=== PATIENT | female | born 1940 | race Caucasian/White ===

== ENCOUNTER → 2017-08-16 10:10 | Outpatient (CLI) | payer MEDICARE, SELFPAY ==
--- NOTE | 2017-08-16 10:14 | CI_ITS ---
Cerebrovascular Exam Indications: 433.10 Occlusion/stenosis of carotid artery without cerebral infarction. IMPRESSIONS 1. The bilateral vertebral arteries are patent with normal antegrade flow. 2. Study suggests 20-49% stenosis involving the right internal carotid artery and left internal carotid artery. 3. Tortuous carotid arteries seen on the left History: Coronary artery disease. Risk factors: Hypertension. Hyperlipidemia. ICD Coronary artery disease. Carotid duplex study. Complete study and Doppler flow study including spectral analysis, color and mera scale imaging. Height: Height: 142.2cm. Height: 56in. Weight: Weight: 58.1kg. Weight: 127.7lb. Body mass index: BMI: 28.7kg/m^2. Body surface area: BSA: 1.54m^2. Location: Vascular laboratory. Patient status: Outpatient. Tables: Arterial flow: + +--------+--------+ Location V sys V ed + +--------+--------+ Right CCA - proximal 89.6cm/s 17.3cm/s + +--------+--------+ Right CCA - distal 75.4cm/s 18.1cm/s + +--------+--------+ Right ECA 84.9cm/s -------- + +--------+--------+ Right ICA - proximal 68.4cm/s 9.4cm/s + +--------+--------+ Right ICA - mid 79.4cm/s 12.6cm/s + +--------+--------+ Right ICA - distal 90.4cm/s 14.9cm/s + +--------+--------+ Right vertebral 45.6cm/s -------- + +--------+--------+ Left CCA - proximal 80.9cm/s 14.1cm/s + +--------+--------+ Left CCA - distal 63.6cm/s 15.7cm/s + +--------+--------+ Left ECA 102cm/s -------- + +--------+--------+ Left ICA - proximal 77cm/s 22cm/s + +--------+--------+ Left ICA - mid 172cm/s 41.6cm/s + +--------+--------+ Left ICA - distal 164cm/s 30.4cm/s + +--------+--------+ Left vertebral 58.9cm/s -------- + +--------+--------+ Velocity ratios: + + + + + + Right, V sys Right, V ed Left, V sys Left, V ed + + + + + + Max ICA/dist CCA 1.2 0.82 2.7 2.65 + + + + + + (Report amended ) Electronically signed by: Agustín Ludwig [id number]
== END ==
PROVIDERS: Family Provider Nurse Practitioner Family; PCP Nurse Practitioner Family; Visit Provider Internal Medicine
DX: I65.23 Occlusion and stenosis of bilateral carotid arteries (principal)
CPT/HCPCS: 93880

== ENCOUNTER → 2018-11-16 12:06 | Outpatient (CLI) | payer MEDICARE, SELFPAY ==
--- NOTE | 2018-11-16 12:09 | CI_ITS ---
Cerebrovascular Exam Indications: 433.10 Occlusion/stenosis of carotid artery without cerebral infarction. IMPRESSIONS 1. The bilateral vertebral arteries are patent with normal antegrade flow. 2. Study suggests 20-49% stenosis involving the right internal carotid artery and the left internal carotid artery. No change from the study of 16-Aug-2017. 3. Tortuous carotid arteries seen bilaterally. Carotid duplex study. Complete study and Doppler flow study including spectral analysis, color and mera scale imaging. Patient status: Outpatient. Tables: Arterial flow: + +--------+--------+ Location V sys V ed + +--------+--------+ Right CCA - proximal 76.2cm/s 12.6cm/s + +--------+--------+ Right CCA - distal 46.4cm/s 10.2cm/s + +--------+--------+ Right ECA 69.9cm/s -------- + +--------+--------+ Right ICA - proximal 47.1cm/s 13.4cm/s + +--------+--------+ Right ICA - mid 88cm/s 17.3cm/s + +--------+--------+ Right ICA - distal 53.4cm/s 11.8cm/s + +--------+--------+ Right vertebral 53.4cm/s -------- + +--------+--------+ Left CCA - proximal 51.1cm/s 14.9cm/s + +--------+--------+ Left CCA - distal 47.1cm/s 11.8cm/s + +--------+--------+ Left ECA 96.6cm/s -------- + +--------+--------+ Left ICA - proximal 63.6cm/s 21.2cm/s + +--------+--------+ Left ICA - mid 129cm/s 23.8cm/s + +--------+--------+ Left ICA - distal 108cm/s 25.1cm/s + +--------+--------+ Left vertebral 40.1cm/s -------- + +--------+--------+ Velocity ratios: + + + + + + Right, V sys Right, V ed Left, V sys Left, V ed + + + + + + Max ICA/dist CCA 1.9 1.7 2.74 2.13 + + + + + + (Report amended ) Electronically signed by: Agustín Ludwig [id number]
== END ==
PROVIDERS: PCP Nurse Practitioner Family; Visit Provider Nurse Practitioner Family
DX: I65.23 Occlusion and stenosis of bilateral carotid arteries (principal)
CPT/HCPCS: 93880

== ENCOUNTER 2019-02-18 20:36 | Inpatient (IN) ==
[2019-02-18 22:04] LABS: Basophils % 0.3 % (0.1-2.0); Eosinophils # 0.2 K/mm3 (0.0-0.4); Eosinophils % 1.4 % (0.1-12.0); Hematocrit 39.9 % (37.0-47.0); Hemoglobin 12.7 g/dL (12.2-16.2); Lymphocytes # 1.6 K/mm3 (0.7-4.5); Lymphocytes % 15.1 % (10-50); Mean Corpuscular HGB Conc 31.8 g/dL (31.8-35.4); Mean Corpuscular Volume 97.4 fl (81-99); Mean Platelet Volume 9.3 fl (7.4-10.4); Monocytes # 0.5 K/mm3 (0.1-1.0); Monocytes % 4.8 % (1.7-9.3); Neutrophils # 8.2 K/mm3 (1.8-7.8); Neutrophils % 78.3 % (37.0-80.0); Platelet Count 149 K/mm3 (142-424); Red Blood Count 4.09 M/mm3 (4.20-5.40); Red Cell Distribution Width 13.1 % (11.5-17.5); White Blood Count 10.4 K/mm3 (4.8-10.8)
[2019-02-18 22:31] LABS: Anion Gap 17.9 mEq/L (5-15); Calcium 8.7 mg/dL (8.5-10.1)
--- NOTE | 2019-02-18 22:31 | Emergency Department Note ---
ED Disposition Clinical Impression: Closed left hip fracture Qualifiers: Encounter type: initial encounter Qualified Code(s): S72.002A - Fracture of unspecified part of neck of left femur, initial encounter for closed fracture Disposition: Admitted As Inpatient Condition on Discharge: Fair - Critical Care Critical Care Time: No Attestation: On 02/18/19, the high probability of a clinically significant, sudden or life threatening deterioration of the following system(s) required my full and direct attention, intervention and personal management. The time I documented below is in addition to time spent performing reported procedures but includes the following listed in this critical care notation. Medical Decision Making - David Inquiry Pt receiving controlled substance: No Vital Signs: 02/18/19 20:41 Temperature 98.0 F Temperature Source Oral Pulse Rate [Right] 60 Respiratory Rate 14 Blood Pressure [Right Arm] 117/56 L Blood Pressure Mean [Right Arm] 76 Blood Pressure Source [Right Arm] Automatic Cuff Blood Pressure Position [Right Arm] Supine 02 Sat by Pulse Oximetry 100 Oxygen Delivery Method Nasal Cannula Oxygen Flow Rate (LPM) 2 - Lab Data Lab Results 02/18/19 21:50: WBC 10.4, RBC 4.09 L, Hgb 12.7, Hct 39.9, MCV 97.4, MCH 31.0, MCHC 31.8, RDW 13.1, Plt Count 149, MPV 9.3, Neut % (Auto) 78.3, Lymph % (Auto) 15.1, [place] % (Auto) 4.8, Eos % (Auto) 1.4, Baso % (Auto) 0.3, Neut # (Auto) 8.2 H, Lymph # (Auto) 1.6, [place] # (Auto) 0.5, Eos # (Auto) 0.2, Baso # (Auto) 0.0 02/18/19 21:50: Sodium 144, Potassium 4.9, Chloride 109 H, Carbon Dioxide 22, Anion Gap 17.9 H, BUN 25 H, Creatinine 1.05 H, Estimated Creat Clear 38, Estimated GFR 50 L, Est GFR ( Amer) 61, Glucose 173 H, Calcium 8.7, Troponin I 0.03 Result diagrams: 02/18/19 21:50 02/18/19 21:50 Orders (Tests/Meds): ORDERS Category Date Time Status XR chest portable Stat Exams 02/18/19 20:52 Taken XR elbow LT min 3V Stat Exams 02/18/19 20:52 Taken XR hip LT 2-3V w/pelvis Stat Exams 02/18/19 20:52 Taken XR knee LT 2V Stat Exams 02/18/19 20:52 Taken XR shoulder LT min 2V Stat Exams 02/18/19 20:52 Taken Urinalysis and Microscopic Stat Lab 02/18/19 22:55 Ordered - Radiology Data #1 Image(s): Chest, Shoulder, Elbow, Hip, Knee Image Reviewed: Yes I reviewed the patient's radiology image Hip: left femoral neck fracture Left shoulder, elbow, and knee: No acute fracture or dislocation Chest x-ray: Pacemaker present. No acute pathology. - ECG Data Tracing #1 EKG interpreted by Julio Olson MD: Rhythm: Electronic atrial pacemaker Rate: 60 [place]: normal Ectopy: none Conduction: Left bundle branch block - Physician Consults Physician Consulted: Adolfo Time: 23:14 Reason -: Admission Comment/Response: Agrees to admit the patient to the hospital. We discussed the patient's clinical information, including history, exam, laboratory and radiology results and ED course. Per hospital procedure, I will write temporary bridge inpatient orders on the patient. Specific orders requested by the admitting physician: Consult orthopedics Additional Consult: Virgil Time: 23:18 Reason -: Orthopedic Eval/Care Comment/Response: N.p.o. after midnight General Adult HPI - General Chief complaint: Fall Stated complaint: fall Time Seen by Provider: 02/18/19 22:31 Mode of Arrival: EMS Limitations: Physical Limitations Description of Symptoms (Recalled from ER Triage Doc. by RN): Pt states she fell in her house chasing a cat, denies LOC, c/o Left shoulder, left elbow, left hip and left knee pain. - History of Present Illness HPI narrative: Brought in by ambulance for left hip injury. She says that that got caught up under her feet causing her to fall. Has left hip pain. Also has some minor pain in her left shoulder, elbow, and knee. Denies head or neck injury. She is not on any blood thinners. Given fentanyl during transport. Comfortable at this time. - Related Data Home Medications Medication Instructions Recorded Confirmed donepezil 5 mg tablet 5 mg PO QHS 08/17/18 02/18/19 aspirin 325 mg tablet 325 mg PO DAILY 11/16/18 02/18/19 Bisoprolol Fumarate [Bisoprolol 10 mg PO QDAY 02/18/19 02/18/19 10mg Tablet] Lisinopril [Lisinopril 2.5mg Tab] 2.5 mg PO BID 02/18/19 02/18/19 Previous Rx's Medication Instructions Recorded nitroglycerin 0.4 mg sublingual 0.4 mg SUBLINGUAL Q5M PRN #30 tab 02/15/19 tablet Allergies Allergy/AdvReac Type Severity Reaction Status Date / Time adhesive tape Allergy Mild BREAKOUT Verified 02/15/19 10:43 Penicillins [PENICILLINS] Allergy Unknown Verified 02/15/19 10:43 rivaroxaban [From Xarelto] Allergy Rash Verified 02/15/19 10:43 [facility] History - Hepatitis A Screen Drug use history?: No High risk sexual behaviors?: No History of sexually transmitted infection?: No Currently employed?: No Childcare worker?: No Do you have indoor plumbing?: Yes Do you have electricity?: Yes Attestation statement:: This patient has been screened for Hepatitis A risk factors. I have reviewed the patient's past medical history: Yes Medical History: Reports:: Congestive Heart Failure, Coronary Artery Disease, Hyperlipidemia, Hypertension, Internal Pacemaker Denies:: Diabetes Mellitus Type 1, Diabetes Mellitus Type 2 Other Medical History: Reports: Hypothyroidism Other Surgeries: Yes: Angioplasty, Hysterectomy-Total, Pacemaker Comment: [facility] 01/09/16. Cholecystectomy - Social History Smoking Status: Former smoker Tobacco Type: cigarettes Alcohol Intake: never Substance Use Type: denies use Occupational Status: retired Family Hx:: Heart Attack ROS Obtained: Yes All systems reviewed & no additional complaints - Constitutional Constitutional: Denies fever(s) - Cardiovascular Cardiovascular: Denies chest pain - Respiratory Respiratory: No dyspnea - Gastrointestinal Gastrointestingal: Denies: abdominal pain, nausea, vomiting - Musculoskeletal Musculoskeletal: Reports as per HPI, Reports joint pain, Denies back pain, Denies neck pain - Neurologic Neurologic: Denies numbness, Denies weakness Physical Exam - General General appearance: alert, in no apparent distress - Head Head exam: atraumatic, normocephalic - Eye Eye exam: Present: normal appearance, EOMI - ENT ENT exam: Present: mucous membranes moist - Neck Neck exam: Present: normal inspection, trachea midline - Chest Chest inspection: Present: normal inspection, symmetric chest wall rise - Respiratory Respiratory exam: Present: normal lung sounds bilaterally. Absent: respiratory distress - Cardiovascular Cardiovascular exam: Present: regular rate, normal rhythm, normal heart sounds - Abdominal Exam Abdominal exam: Present: soft, normal bowel sounds. Absent: distention, tenderness, guarding - Extremities Exam Extremities exam: Present: normal capillary refill - Neurological Exam Neurological exam: Present: alert, oriented X3, CN II-XII intact. Absent: motor sensory deficit - Psychiatric Psychiatric exam: Present: normal affect, normal mood - Skin Skin exam: Present: warm, dry - Other Other exam information: Left lower extremity is shortened and externally rotated. Pain with any attempted logrolling of the extremity. Normal neurovascular status distally. Mild tenderness left shoulder, elbow, and knee without deformity.
[2019-02-19 00:29] LABS: Microscopic, Urine URINE MICROSCOPIC (MICROSCOPIC)
[2019-02-19 01:11] LABS: Appearance,Urine SL CLOUDY (Clear); Bilirubin,Urine Negative (Negative); Blood, Urine 3+ (Negative); Color,Urine YELLOW (Yellow); Glucose,Urine (UA) Negative (Negative); Ketones,Urine TRACE (Negative); Leukocyte Esterase,Urine Negative (Negative); PH,Urine 5.5 (5.0-8.5); Protein,Urine TRACE (Negative); Specific Gravity, Urine >= 1.030 (1.005-1.030); Urobilinogen,Urine 0.2 EU/dl (0.2)
[2019-02-19 01:17] LABS: Amorphous Sediment,Urine 1+ /lpf
--- NOTE | 2019-02-19 10:36 | Consult Report ---
*Admission Date: 02/18/19 *Reason for consult:: Left hip fracture *History of present illness: Patient is an 78-year-old female admitted last night for management of left hip fracture. She is giving history of fall at home yesterday while chasing her cat. She could not get up and walk afterwards and was brought to ER where work- up including x-rays showed a displaced left femoral neck fracture. She denied a ny head trauma, loss of consciousness, confusion, chest pain, shortness of breath. She lives with her and was walking independently prior to the fall. She has history of pacemaker dependence and she had also fallen 2 weeks prior with out incident and was taken to [facility] where no fracture was identified. Her medical history includes congestive Heart Failure, Coronary Artery Disease, Hyperlipidemia, Hypertension and internal Pacemaker. She is on long-term aspirin. No history of diabetes, chronic kidney disease and she is a non-smoker. Patient is very active and was at court [place] in [place] yesterday with no chest pain or shortness of breath. She has history of coronary artery disease with a remote placement of a stent and pacemaker; she follows closely with cardiology and last saw Dr. Pereira's office this past Wednesday. Review of Systems - Review of Systems Review of systems:: pertinent systems reviewed and negative unless documented below - Constitutional Denies anorexia, Denies excessive sweating - Eyes Denies blurry vision - *Cardiovascular Denies chest pain, Denies shortness of breath - *Respiratory Denies cough, Denies shortness of breath - *Gastrointestinal Denies abdominal pain - *Musculoskeletal Reports abnormal walking, Reports joint pain - Integumentary/Breasts Reports lesions, Reports itching, Reports rash - *Neurologic Denies numbness, Denies weakness [facility] History I have reviewed the patient's past medical history: Yes Medical History: Reports:: Congestive Heart Failure, Coronary Artery Disease, Hyperlipidemia, Hypertension, Internal Pacemaker Denies:: Cancer, Diabetes Mellitus Type 1, Diabetes Mellitus Type 2 *Have you ever received a pneumonia vaccine?: Yes *Have you received a flu vaccine this season?: Yes Other Medical History: Reports: Hypothyroidism Other Surgeries: Yes: Angioplasty, Appendectomy, Hysterectomy-Total, Pacemaker - *Social History Educational Level: Completed High School Smoking Status: Former smoker Tobacco Type: cigarettes # Packs/Day (cigarettes): 1 Alcohol Intake: never Substance Use Type: denies use *Occupational Status:: retired Housing: house Household Members: spouse, family *Travel in the last 8 weeks: None Family Hx:: No significant family history Meds Home Medications Medication Instructions Recorded Confirmed Type donepezil 5 mg tablet 5 mg PO HS 08/17/18 02/19/19 History aspirin 325 mg tablet 325 mg PO DAILY 11/16/18 02/18/19 History nitroglycerin 0.4 mg sublingual 0.4 mg SUBLINGUAL Q5M PRN #30 tab 02/15/19 02/18/19 Rx tablet Bisoprolol Fumarate [Bisoprolol 10 mg PO DAILY 02/18/19 02/19/19 History 10mg Tablet] Lisinopril [Lisinopril 2.5mg Tab] 2.5 mg PO BID 02/18/19 02/18/19 History Enoxaparin Sodium [Lovenox 30 mg SQ Q12H 21 Days syringe 02/21/19 Rx 30mg/0.3mL syringe] Hydrocod/Acet 5/325 mg [[place] 1 - 2 tab PO Q4HP PRN #24 tab 02/21/19 Rx 5/325mg tablet] Allergies Allergy/AdvReac Type Severity Reaction Status Date / Time adhesive tape Allergy Mild BREAKOUT Verified 02/15/19 10:43 Penicillins [PENICILLINS] Allergy Unknown Verified 02/15/19 10:43 rivaroxaban [From Xarelto] Allergy Rash Verified 02/15/19 10:43 Exam Vital signs and Labs for Last 24 Hours: Temp Pulse Resp BP Pulse Ox 97.9 F 55 L 16 128/46 L 90 L 02/19/19 08:00 02/19/19 08:00 02/19/19 08:00 02/19/19 08:00 02/19/19 08:00 Laboratory Results - last 24 hr 02/18/19 21:50: WBC 10.4, RBC 4.09 L, Hgb 12.7, Hct 39.9, MCV 97.4, MCH 31.0, MCHC 31.8, RDW 13.1, Plt Count 149, MPV 9.3, Neut % (Auto) 78.3, Lymph % (Auto) 15.1, [place] % (Auto) 4.8, Eos % (Auto) 1.4, Baso % (Auto) 0.3, Neut # (Auto) 8.2 H, Lymph # (Auto) 1.6, [place] # (Auto) 0.5, Eos # (Auto) 0.2, Baso # (Auto) 0.0 02/18/19 21:50: Sodium 144, Potassium 4.9, Chloride 109 H, Carbon Dioxide 22, Anion Gap 17.9 H, BUN 25 H, Creatinine 1.05 H, Estimated Creat Clear 38, Estimated GFR 50 L, Est GFR ( Amer) 61, Glucose 173 H, Calcium 8.7, Troponin I 0.03 02/19/19 00:10: Urine Color Yellow, Urine Appearance Sl cloudy, Urine pH 5.5, Ur Specific [place] >= 1.030, Urine Protein Trace, Urine Glucose (UA) Negative, Urine Ketones Trace, Urine Blood 3+, Urine Nitrate Negative, Urine Bilirubin Negative, Urine Urobilinogen 0.2, Ur Leukocyte Esterase Negative, Urine RBC 5- 10, Urine WBC 3-5, Ur Squamous Epith Cells 10-20, Amorphous Sediment 1+ I & O for Last 24 hours: Intake & Output 02/16/19 02/17/19 02/18/19 02/19/19 11:59 11:59 11:59 11:59 Intake Total 459 / 459 Output Total 165 / 165 Balance 294 / 294 Weight 127 lb 4 oz - Constitutional no acute distress, average body habitus, cooperative - *Routine HEENT Exam Head: Present: normocephalic, atraumatic Eye: Present: EOMI ENT: Present: mucous membranes moist - *Routine Neck Exam Present: supple, full ROM, trachea midline. Absent: lymphadenopathy - *Routine Respiratory Exam Present: CTA bilaterally. Absent: respiratory distress - *Routine Cardiovascular Exam Present: RRR, Normal S1, Normal S2 - *Routine Abdominal Exam Present: soft, normoactive bowel sounds. Absent: organomegaly - *Routine Extremities Exam Comments: On examination of her lower extremities, there is shortening of the LEFT leg and the foot is externally rotated. On examination of the LEFT hip the skin is normal. No rashes or lesions noted. She is tender over the LEFT hip. Any attem pted movements of the LEFT hip are painful. Thigh and calf are soft and nontender. Dorsalis pedis and posterior tibial pulses are palpable 1+ bilaterally. Sensation is grossly intact. She has good range of foot, ankle and toe movements. Diagnostic imaging: X-rays of her pelvis/LEFT hip reviewed along with the radiologist's report. The x-rays show a displaced subcapital fracture neck of LEFT femur. No other acute changes noted. There is a degree of osteopenia is noted. - Routine Back/Spine/Pelvis Exam Back/Spine: Absent: CVA tenderness, vertebral tenderness - *Routine Skin Exam Present: intact, warm, normal turgor, rash (Has a rash/scratch cabral over the arms and chest) - *Routine Neurological Exam Present: alert, oriented X3, CN II-XII intact - Routine Psychiatric Exam Present: normal affect, cooperative Results - Labs Result Diagrams: 02/20/19 06:49 02/20/19 07:35 Labs: Abnormal lab results 02/18/19 02/18/19 Range/Units 21:50 21:50 RBC 4.09 L (4.20-5.40) M/mm3 Neut # (Auto) 8.2 H (1.8-7.8) K/mm3 Chloride 109 H (98-107) mmol/L Anion Gap 17.9 H (5-15) mEq/L BUN 25 H (7-18) mg/dL Creatinine 1.05 H (0.55-1.02) mg/dL Estimated GFR 50 L (>60) ml/min Glucose 173 H (74-106) mg/dL H & H 02/18/19 Range/Units 21:50 Hgb 12.7 (12.2-16.2) g/dL Hct 39.9 (37.0-47.0) % All other labs normal. Assessment and Plan (1) Closed left hip fracture Current visit: Yes Status: Acute Qualifiers: Encounter type: initial encounter Qualified Code(s): S72.002A - Fracture of unspecified part of neck of left femur, initial encounter for closed fracture Category: Medical Code(s): S72.002A - Fracture of unspecified part of neck of left femur, initial encounter for closed fracture - Assessment and plan all Dx Assessment and Plan for all problems:: I have reviewed the clinical and x-ray findings with the patient and her who is with her in the room. I have discussed the diagnosis and management options in detail including both nonsurgical and surgical. I have recommended surgical remediation in the form of a hemiarthroplasty LEFT hip. I explained the procedure, risks and benefits, alternatives and the expected postoperative course. I have explained to the patient and her with drawings of the fracture and the proposed surgical procedure. The complications discussed include but are not limited to infection, injury to nerves and blood vessels, DVT and PE, femur fracture, limb length inequality, dislocation, implant failure , loosening, acetabular wear, osteolysis, periprosthetic femur fracture, heterotopic ossification, abductor weakness and a limp, incomplete relief of pain, incomplete return of function or motion, likely need for further surgery in future including revision, anesthetic/medical complications including heart attack, stroke, transfusion reactions and even . We discussed how any of these events can be devastating. We have discussed nonsurgical alternatives as well. I've explained that the patient is at a significant surgical risk due to her age, medical comorbidities and fragility of the bone. Patient and her seemed to understand and accept these risks. We have discussed nonsurgical alternatives as well. The nonoperative management would essentially consist of prolonged bed rest and traction (skeletal/skin) in bed and pain medication and has exceptionally poor outcome. This could result in nonunion and malunion of the fracture and almost certainly, the patient has a very high risk of decubitus ulcers, UTI, respiratory tract infections, DVT/PE and other complications from being bedridden. I have explained to them that the standard of care for this sort of injuries is surgical throughout the country unless the patient is very ill for surgical management. We also discussed the postoperative course including the rehab and physical therapy required. All their questions were answered and they verbalized a good understanding. Patient understood the risks, agreed to proceed with surgery, signed the consent form and no guarantees or assurances were given or implied. Patient is cleared from a medical standpoint by Dr. Mata this morning. Well also obtain a preoperative anesthetic evaluation. I have recommended- Type and screen Continue nothing by mouth Continue IV fluids DVT prophylaxis as per protocol Analgesia as needed Consent patient for a hemiarthroplasty LEFT hip. Order 2 g of IV Ancef for preoperative prophylaxis to start half an hour before surgery (has history of rash to penicillins). I am planning to take her for surgery at the earliest opportunity this morning. Thank you for the opportunity to take part in the care of this very pleasant pat ient.
--- NOTE | 2019-02-19 12:03 | Pharmacy Consult Notes ---
[facility] Pharmacy VTE Monitoring - Patient Demographics Admission date: 02/18/19 Report Date: 02/19/19 Time: 12:03 Allergies/Adverse Reactions: Patient Allergies adhesive tape Allergy (Mild, Verified 02/15/19 10:43) BREAKOUT Penicillins [PENICILLINS] Allergy (Unknown, Verified 02/15/19 10:43) rivaroxaban [From Xarelto] Allergy (Verified 02/15/19 10:43) Rash Height: 1.63 m Weight: 57.72 kg Patient Problems: Current Active Problems Closed left hip fracture (Acute) - VTE Risk Labs: VTE Related Lab Results Hgb 12.7 g/dL (12.2-16.2) 02/18/19 21:50 Hct 39.9 % (37.0-47.0) 02/18/19 21:50 Plt Count 149 K/mm3 (142-424) 02/18/19 21:50 BUN 25 mg/dL (7-18) H 02/18/19 21:50 Creatinine 1.05 mg/dL (0.55-1.02) H 02/18/19 21:50 Estimated Creat Clear 38 mL/min (50-200) 02/18/19 21:50 Was VTE Risk Assessment Performed: Yes VTE Score: 2 VTE Risk Level: Very Low Risk - Prophylaxis VTE Prophylaxis Ordered?: Yes Types of VTE Prophylaxis: TEDS Knee High Location of Applied Device: Bilateral Lower Extremeties - VTE Diagnosis Confirmed Treatment or plan recommended: Continue Current Treatment
--- NOTE | 2019-02-19 12:13 | History & Physical Report ---
*Admission Date: 02/18/19 *Chief complaint: fall, left hip pain *History of present illness: Lula is an 78-year-old female with history of pacemaker dependence who was at home yesterday when she fell. Of note she had fallen 2 weeks prior with out incident and was taken to [facility] where no fracture was identified. On presentation to [facility], she was found to have a left hip fracture. Admitted for further management of this. Denied any head trauma, loss of consciousness, confusion, chest pain, shortness of breath. Is otherwise at baseline. Her is with her today and states she is otherwise doing well. Orthopedics planning to take for surgery today. No history of insulin dependent diabetes, chronic kidney disease with creatinine greater than 2, need for dialysis. Is very active and was at court days in [place] yesterday with no chest pain or shortness of breath. Does have history of coronary artery disease with a remote placement of a stent and pacemaker however follows closely with cardiology and last saw Dr. Pereira's office this past Wednesday. [facility] History I have reviewed the patient's past medical history: Yes Medical History: Reports:: Congestive Heart Failure, Coronary Artery Disease, Hyperlipidemia, Hypertension, Internal Pacemaker Denies:: Cancer, Diabetes Mellitus Type 1, Diabetes Mellitus Type 2 *Have you ever received a pneumonia vaccine?: Yes *Have you received a flu vaccine this season?: Yes Other Medical History: Reports: Hypothyroidism Other Surgeries: Yes: Angioplasty, Appendectomy, Hysterectomy-Total, Pacemaker - *Social History Educational Level: Completed High School Smoking Status: Former smoker Tobacco Type: cigarettes # Packs/Day (cigarettes): 1 Alcohol Intake: never Substance Use Type: denies use *Occupational Status:: retired Housing: house Household Members: spouse, family *Travel in the last 8 weeks: None Family Hx:: No significant family history Review of Systems - Review of Systems Review of systems:: pertinent systems reviewed and negative unless documented below - *Neurologic Denies numbness, Denies weakness Meds Home Medications Medication Instructions Recorded Confirmed Type donepezil 5 mg tablet 5 mg PO HS 08/17/18 02/19/19 History aspirin 325 mg tablet 325 mg PO DAILY 11/16/18 02/18/19 History nitroglycerin 0.4 mg sublingual 0.4 mg SUBLINGUAL Q5M PRN #30 tab 02/15/19 02/18/19 Rx tablet Bisoprolol Fumarate [Bisoprolol 10 mg PO DAILY 02/18/19 02/19/19 History 10mg Tablet] Lisinopril [Lisinopril 2.5mg Tab] 2.5 mg PO BID 02/18/19 02/18/19 History Allergies Allergy/AdvReac Type Severity Reaction Status Date / Time adhesive tape Allergy Mild BREAKOUT Verified 02/15/19 10:43 Penicillins [PENICILLINS] Allergy Unknown Verified 02/15/19 10:43 rivaroxaban [From Xarelto] Allergy Rash Verified 02/15/19 10:43 Exam Vital signs and Labs for Last 24 Hours: Temp Pulse Resp BP Pulse Ox 97.9 F 55 L 16 128/46 L 90 L 02/19/19 08:00 02/19/19 08:00 02/19/19 08:00 02/19/19 08:00 02/19/19 08:00 Laboratory Results - last 24 hr 02/18/19 21:50: WBC 10.4, RBC 4.09 L, Hgb 12.7, Hct 39.9, MCV 97.4, MCH 31.0, MCHC 31.8, RDW 13.1, Plt Count 149, MPV 9.3, Neut % (Auto) 78.3, Lymph % (Auto) 15.1, [place] % (Auto) 4.8, Eos % (Auto) 1.4, Baso % (Auto) 0.3, Neut # (Auto) 8.2 H, Lymph # (Auto) 1.6, [place] # (Auto) 0.5, Eos # (Auto) 0.2, Baso # (Auto) 0.0 02/18/19 21:50: Sodium 144, Potassium 4.9, Chloride 109 H, Carbon Dioxide 22, A nion Gap 17.9 H, BUN 25 H, Creatinine 1.05 H, Estimated Creat Clear 38, Estimated GFR 50 L, Est GFR ( Amer) 61, Glucose 173 H, Calcium 8.7, Troponin I 0.03 02/19/19 00:10: Urine Color Yellow, Urine Appearance Sl cloudy, Urine pH 5.5, Ur Specific [place] >= 1.030, Urine Protein Trace, Urine Glucose (UA) Negative, Urine Ketones Trace, Urine Blood 3+, Urine Nitrate Negative, Urine Bilirubin Negative, Urine Urobilinogen 0.2, Ur Leukocyte Esterase Negative, Urine RBC 5- 10, Urine WBC 3-5, Ur Squamous Epith Cells 10-20, Amorphous Sediment 1+ I & O for Last 24 hours: Intake & Output 02/16/19 02/17/19 02/18/19 02/19/19 23:59 23:59 23:59 23:59 Intake Total 459 / 459 Output Total 165 / 165 Balance 294 / 294 Weight 56.274 kg 57.72 kg - Constitutional no acute distress, average body habitus Comments: Elderly appearing - *Routine HEENT Exam Head: Present: normocephalic Eye: Present: EOMI, PERRL ENT: Present: mucous membranes moist - Routine Chest/Breast/Axilla Exam Chest wall: Present: pacemaker. Absent: tenderness - *Routine Respiratory Exam Present: CTA bilaterally - *Routine Cardiovascular Exam Present: RRR Comments: Significant crescendo systolic murmur best heard at left upper sternal border, grade 3/6 - *Routine Rectal Exam Patient deferred: visual exam - *Routine Extremities Exam Absent: cyanosis, clubbing, edema Comments: Left leg proximally 1-1/2 inches shorter than the right with external rotation tender to palpation superficial to left hip - *Routine Skin Exam Present: warm. Absent: rash - *Routine Neurological Exam Present: alert, oriented X3. Absent: altered mental status Assessment and Plan (1) Closed left hip fracture Current visit: Yes Status: Acute Qualifiers: Encounter type: initial encounter Qualified Code(s): S72.002A - Fracture of unspecified part of neck of left femur, initial encounter for closed fracture Category: Medical Code(s): S72.002A - Fracture of unspecified part of neck of left femur, initial encounter for closed fracture (2) AICD (automatic cardioverter/defibrillator) present Current visit: No Status: Chronic Category: Surgical Code(s): Z95.810 - Presence of automatic (implantable) cardiac defibrillator (3) Aortic valve stenosis with insufficiency Current visit: No Status: Chronic Qualifiers: Cardiac valve disease etiology: etiology unspecified Qualified Code(s): I35.2 - Nonrheumatic aortic (valve) stenosis with insufficiency Category: Medical Code(s): I35.2 - Nonrheumatic aortic (valve) stenosis with insufficiency (4) CHF (congestive heart failure) Current visit: No Status: Chronic Category: Medical Code(s): I50.9 - Heart failure, unspecified (5) Chronic kidney disease, stage 2 (mild) Current visit: No Status: Chronic Category: Medical Code(s): N18.2 - Chronic kidney disease, stage 2 (mild) (6) Hypertensive heart disease Current visit: No Status: Chronic Qualifiers: Heart failure presence: with heart failure Heart failure type: systolic Heart failure chronicity: chronic Qualified Code(s): I11.0 - Hypertensive heart disease with heart failure; I50.22 - Chronic systolic (congestive) heart failure Category: Medical Code(s): I11.9 - Hypertensive heart disease without heart failure (7) Left bundle branch block Current visit: No Status: Chronic Category: Medical Code(s): I44.7 - Left bundle-branch block, unspecified - Assessment and plan all Dx Assessment and Plan for all problems:: Ms. Sanchez is an 78-year-old female who fell at home and sustained a left hip fracture. Her pain is stable this morning. She is otherwise alert and oriented with no other signs of trauma. She has no significant kidney disease, no history of diabetes, is active and has no chest pain with activity. Able to walk throughout a festival yesterday without chest pain. Would place her METs at 4-10. RCRI of 1 due to her history of coronary artery disease. This gives her a 6% risk of major adverse cardiac event intraoperatively or in the perioperative setting. Patient optimized at this time for therapy. Discussed risks and benefits. Feel risk of not fixing hip surgically outweighs the risk of adverse events. Would recommend initiating Lovenox therapy after surgery for DVT prophylaxis with resumption of patient's home 325 mg aspirin at time of discharge. Patient will likely benefit from physical therapy recommendations and placement prior to going home Otherwise continue patient's home medication regimens for blood pressure and chronic conditions.
--- NOTE | 2019-02-19 14:05 | Progress Note ---
[facility] Anesthesia Checklist - Structural Data Admitted From: Inpatient Planned Operative Procedure/s: orif l hip Consent for Planned Operative Procedure(s) Verified: Yes - Airway Assessment C-Spine Mobility Assessed: Yes TMJ Mobility Assessed: Yes Dentition: Poor Dentition - Neurological Assessment Level of Consciousness: Awake, Alert, Appropriate - Anesthesia Plan Anesthesia Risk discussed: Yes Anesthesia Plan: Verified ASA Class: III Anesthesia Type: Spinal [facility] History I have reviewed the patient's past medical history: Yes Medical History: Reports:: Congestive Heart Failure, Coronary Artery Disease, Hyperlipidemia, Hypertension, Internal Pacemaker Denies:: Cancer, Diabetes Mellitus Type 1, Diabetes Mellitus Type 2 *Have you ever received a pneumonia vaccine?: Yes *Have you received a flu vaccine this season?: Yes Other Medical History: Reports: Hypothyroidism Anesthesia experience/problems:: none Other Surgeries: Yes: Angioplasty, Appendectomy, Hysterectomy-Total, Pacemaker - *Social History Educational Level: Completed High School Smoking Status: Former smoker Tobacco Type: cigarettes # Packs/Day (cigarettes): 1 Alcohol Intake: never Substance Use Type: denies use *Occupational Status:: retired Housing: house Household Members: spouse, family *Travel in the last 8 weeks: None Family Hx:: No significant family history
--- NOTE | 2019-02-19 14:06 | Progress Note ---
[facility] Anesthesia Record Part I Intake, IV Amount: 2,200 Estimated blood loss (mL): 200 Urine output (mL): 250 Blood Pressure: 103/46 SaO2: 100 Pulse Rate: 60 Respiratory Rate: 12 Temperature: 98 F Patient is:: Awake, Stable Stable to PACU at:: 14:00
--- NOTE | 2019-02-19 14:06 | Progress Note ---
[facility] Anesthesia Record Part II Discharge Time: 14:30 Destination: floor PACU nurse assessment reviewed?: Yes Patient Condition:: Good Anesthesia Complications:: None Swallowing reflex intact?: Yes Cyanosis?: No
--- NOTE | 2019-02-19 14:51 | Operative Note ---
Date of procedure: 02/19/19 Pre-op Diagnosis:: Displaced Fracture neck of femur LEFT hip Post-op Diagnosis:: Same Procedure performed:: Uncemented bipolar hemiarthroplasty, LEFT hip Surgeon:: Romel Herman MD Solid Fiber Paster Operator(s):: Sarah Madera MICROSTRATEGY DEVELOPER:: Martínez Frank Anesthesia: spinal Estimated blood loss (mL): 200 Clinical Note:: Patient is an 78-year-old female who sustained a displaced intracapsular fracture neck of left femur following a mechanical fall at home yesterday. A hemiarthroplasty is indicated to relieve pain and restore function. The operation is clinically indicated and is the standard of care for this type of fracture. Please refer to my consult note for full details. Operative findings:: Displaced sub capital femoral neck fracture of the left hip as noted on the preoperative hip x-rays. At surgery a pre-existing non-propagating split in the calcar extending a short distance was noted. This was fixed with a single Dall- Appolicious cable wire prior to broaching the femoral canal. The articular cartilage of the acetabulum is well maintained without evidence of any significant a rthritis. The proximal femur bone quality is good. Operative note:: On the day of the procedure the patient and family were met on the floor, and a physical examination was performed. The operating side and site were marked and initialed by me. I reviewed the diagnosis, natural history and management options in detail including both the nonsurgical and surgical. Given the nature of the fracture, I have recommended surgery in the form of a hemiarthroplasty of the left hip. I discussed the procedure, risks and benefits, alternatives, potential complications and expected outcomes with the patient and family. The complications discussed include but are not limited to infection, injury to nerves and blood vessels, DVT and PE, femur fracture, limb length inequality, dislocation, implant failure, loosening, acetabular wear, osteolysis, periprosthetic femur fracture, heterotopic ossification, abductor weakness and a limp, incomplete relief of pain, incomplete return of function or motion, likely need for further surgery in future including revision, anesthetic/medical complications including heart attack, stroke, transfusion reactions and even . We discussed how any of these events can be devastating. We have discussed nonsurgical alternatives as well. We also discussed the postoperative course including the rehab and physical therapy required. Patient understood the risks, agreed to proceed with surgery, signed the consent form and no guarantees or assurances were given or implied. The patient was brought to the operating room and a spinal anesthesia was administered by the tube sizer operator. The patient was then transferred onto the operating table and positioned in the right lateral decubitus position with the left hip facing upwards. All the bony prominences were well-padded. The left lower extremity was then prepped and draped in the usual sterile fashion. The entire operative team used isolation suits and room traffic was controlled. The surgical landmarks and incision was marked over the skin with a marking pen. Ioban sterile drape was used to cover the operative site and isolate the perineum completely from the operative field. Administration of 2 g of prophylactic IV Ancef was confirmed with the anesthetic team. A preprocedure timeout was performed as per hospital protocol. A posterior approach was used to the hip joint. An electrocautery was used for hemostasis. The skin incision was made centering over the posterior border of the greater trochanter extending posteriorly in a curvilinear fashion across the buttock. The dissection was carried through subcutaneous tissue down to the fascia yvonne. The fascia yvonne and gluteus fascia were split and a Charnley retractor was placed. The trochanteric bursa was then removed with blunt dissection. The sciatic nerve was identified and kept out of the harm's way throughout the rest of the procedure. The hip was then internally rotated and the fat over the external rotators was cleared with a sponge. The short external rotator muscles were identified, a tag stitch was placed near their insertion, and they were divided close to the greater trochanter with electrocautery. This exposed the joint capsule which was opened with a T shaped incision and tag stitches were applied to both the leaves of the capsule. Upon entering the joint capsule, a fracture hematoma was noted as well as the displaced sub-capital femoral neck fracture. A corkscrew was then used to remove the femoral head from the acetabulum and passed to the bomb technician to be sized on the back table. It measured 43 mm. All bony fragments were then removed from the acetabulum and surrounding soft tissue. The acetabulum was then inspected and found to be clear. The articular cartilage was noted to be well maintained without any significant arthritic changes. Our attention was then turned to the preparation of proximal femur where a cutting guide was used to hakan the neck for the femoral neck cut. An oscillating saw was then used to finish the femoral cut. At this stage we noted a small non-propagating vertical extension of the fracture for a short distance along the medial calcar. Even though this appeared to be stable and non-propagating, I decided to fix it with Dall-Miles cable. I introduced a 2 mm Dall-Miles cable around the proximal femur at the level of the lesser trochanter. The cable was tightened and the sleeve was crimped appropriately with the crimper. The excess wire was then cut off. This gave a very good secure fixation at the level of the femoral calcar. A box osteotome was then used to remove the bone from the proximal femur. A canal entry reamer was then used to open the femoral canal paying close attention to keep the reamer in a lateral position. Next we performed femoral broaching starting with a small broach, making efforts to lateralize the broach. The broaching was continued sequentially up to size 4 broach. We found this to be a very good fit without any rocking. We then used the calcar reamer to finish the femoral preparation. We then performed a trial reduction using the size 4 broach, +0 neck and 43 mm bipolar head. The hip was taken through range of m otion and tested in adduction, internal and external rotation as well as with a shuck and posteriorly directed force on a flexed hip. It was noted that the hip was very stable with these trial components throughout the range of motion. We also noted that the limb lengths were equal with these components. Next, the trial components were removed and the femur and acetabulum were irrigated with pulse lavage and suctioned out. The size 4 Fariha accolade 127 degree femoral stem was introduced and seated to the appropriate level. This gave us a very good fit without any play whatsoever. We then irrigated and dried the Lafleur taper and then placed the definitive 43 mm bipolar femoral head assembly on the stem and tapped into place. The hip was then reduced and again taken through range of motion and noted to be stable. The limb length was also well corrected. The hip joint was then soaked with dilute Betadine solution for 3 minutes, then suctioned out and irrigated with normal saline pulse lavage. We confirmed good hemostasis and then proceeded to close the wound. The capsule was closed with interrupted #1 Vicryl sutures followed by reattachment of the external rotators to the greater trochanter with #1 Vicryl sutures. Next the fascia yvonne and the gluteus fascia were closed with #1 Vicryl sutures. The wound was then again irrigated copiously with pulse lavage and suctioned dry. Next the subcutaneous tissues were closed with 2-0 Vicryl sutures. The skin was closed with 4-0 Monocryl subcuticular sutures, Dermabond and Steri-Strips. Sterile dressings were applied consisting of Xeroform, 4 x 4 and ABDs as well as adhesive tape]. No drains were placed. The patient was then transferred from the operating table onto the bed. The leg lengths were again checked in supine position and noted to be equal. An abduction pillow was placed between the legs. The patient was then transported to the postoperative recovery area in a stable condition. Patient tolerated the procedure well and there were no immediate complications. Swab, needle and instrument counts were correct according to the scrub team at the end of the procedure. Portable X-rays of the left hip AP and lateral views were obtained in the recovery area and noted to be satisfactory. Postoperatively, continue standard precautions for a posterior hip approach. To mobilize weightbearing as tolerated with the help of a walker by physical therapist and to commence standard physical therapy and precautions for a posterior hip approach. Implants: Barker accolade II 127 degree neck angle V 40, hip stem- size 4 Fariha UHR universal head bipolar component-43 mm outer diameter/26 mm inner diameter Fariha LFIT V40 femoral head, 28 mm outer diameter, +0 mm offset 2 [facility] and sleeve set x1 (Industry guest experience representative: Den Escalante from [employer]) Condition: stable Disposition: PACU Specimens:: None Complications:: None
--- NOTE | 2019-02-19 21:25 | Electrocardiograph Report ---
APPROVED REPORT Exam: Resting ECG HR:60 bpm ECG Measurements Heart Rate 60 AXES GA 206 P -3 QRSd 154 QRS -47 QT 514 T136 QTc 514 <Conclusion> Electronic atrial pacemaker Left axis deviation Left bundle branch block Abnormal ECG Electronically signed by : Tomas Clark, 02/19/2019 21:25:12
[2019-02-20 07:00] LABS: Basophils % 0.1 % (0.1-2.0); Eosinophils # 0.2 K/mm3 (0.0-0.4); Eosinophils % 1.2 % (0.1-12.0); Hemoglobin 10.3 g/dL (12.2-16.2); Lymphocytes # 1.1 K/mm3 (0.7-4.5); Lymphocytes % 7.6 % (10-50); Mean Corpuscular Volume 96.8 fl (81-99); Mean Platelet Volume 9.1 fl (7.4-10.4); Monocytes # 0.8 K/mm3 (0.1-1.0); Monocytes % 5.3 % (1.7-9.3); Neutrophils # 12.5 K/mm3 (1.8-7.8); Neutrophils % 85.9 % (37.0-80.0); Platelet Count 106 K/mm3 (142-424); Red Blood Count 3.31 M/mm3 (4.20-5.40); Red Cell Distribution Width 13.2 % (11.5-17.5); White Blood Count 14.6 K/mm3 (4.8-10.8)
[2019-02-20 07:38] LABS: Lymphocytes % 5 % (10-50); Monocytes % 6 % (2-9); Neutrophils % 83 % (42-76); Total Cells Counted 100
[2019-02-20 07:39] LABS: Stomatocytes 2+
--- NOTE | 2019-02-20 07:59 | Progress Note ---
Internal Medicine - PN: Subj *Date: 02/20/19 *Time: 07:34 Interval history: Ms. Sanchez did well overnight. No acute events. Status post fixation of her hip fracture yesterday. Tolerated well. Work with physical therapy today. Pain well controlled on current regimen. Denies shortness of breath, chest pain, nausea, vomiting. Does complain of feeling tired today. Is on supplemental oxygen this morning however does not wear it at baseline. Exam Vital signs and Labs for Last 24 Hours: Temp Pulse Resp BP Pulse Ox 98.4 F 65 17 125/49 L 97 02/20/19 03:55 02/20/19 03:55 02/20/19 03:55 02/20/19 03:55 02/20/19 03:55 Laboratory Results - last 24 hr 02/19/19 11:10: Blood Type A Positive, Antibody Screen Negative 02/20/19 06:49: WBC 14.6 H D, RBC 3.31 L, Hgb 10.3 L, Hct 32.0 L, MCV 96.8, MCH 31.0, MCHC 32.0, RDW 13.2, Plt Count 106 L D, MPV 9.1, Neut % (Auto) 85.9 H, Lymph % (Auto) 7.6 L, [place] % (Auto) 5.3, Eos % (Auto) 1.2, Baso % (Auto) 0.1, Neut # (Auto) 12.5 H, Lymph # (Auto) 1.1, [place] # (Auto) 0.8, Eos # (Auto) 0.2, Baso # (Auto) 0.0 I & O for Last 24 hours: Intake & Output 02/17/19 02/18/19 02/19/19 02/20/19 23:59 23:59 23:59 23:59 Intake Total 2659 / 2659 834 / 834 Output Total 165 / 165 375 / 375 Balance 2494 / 2494 459 / 459 Weight 56.274 kg 57.72 kg 57.776 kg - *Routine HEENT Exam Head: Present: normocephalic Eye: Present: EOMI, PERRL ENT: Present: mucous membranes moist - *Routine Neck Exam Present: supple. Absent: lymphadenopathy - *Routine Respiratory Exam Present: CTA bilaterally - *Routine Cardiovascular Exam Present: RRR - *Routine Abdominal Exam Present: soft, normoactive bowel sounds. Absent: tenderness - *Routine Extremities Exam Absent: cyanosis, clubbing, edema - *Routine Skin Exam Present: warm. Absent: rash - *Routine Neurological Exam Present: alert, oriented X3 Assessment and Plan (1) Closed left hip fracture Current visit: Yes Status: Acute Qualifiers: Encounter type: initial encounter Qualified Code(s): S72.002A - Fracture of unspecified part of neck of left femur, initial encounter for closed fracture Category: Medical Code(s): S72.002A - Fracture of unspecified part of neck of left femur, initial encounter for closed fracture (2) AICD (automatic cardioverter/defibrillator) present Current visit: No Status: Chronic Category: Surgical Code(s): Z95.810 - Presence of automatic (implantable) cardiac defibrillator (3) Aortic valve stenosis with insufficiency Current visit: No Status: Chronic Qualifiers: Cardiac valve disease etiology: etiology unspecified Qualified Code(s): I35.2 - Nonrheumatic aortic (valve) stenosis with insufficiency Category: Medical Code(s): I35.2 - Nonrheumatic aortic (valve) stenosis with insufficiency (4) CHF (congestive heart failure) Current visit: No Status: Chronic Qualifiers: Heart failure type: systolic Category: Medical Code(s): I50.9 - Heart failure, unspecified (5) Chronic kidney disease, stage 2 (mild) Current visit: No Status: Chronic Category: Medical Code(s): N18.2 - Chronic kidney disease, stage 2 (mild) (6) Hypertensive heart disease Current visit: No Status: Chronic Qualifiers: Heart failure presence: with heart failure Heart failure type: systolic Heart failure chronicity: chronic Qualified Code(s): I11.0 - Hypertensive heart disease with heart failure; I50.22 - Chronic systolic (congestive) heart failure Category: Medical Code(s): I11.9 - Hypertensive heart disease without heart failure (7) Left bundle branch block Current visit: No Status: Chronic Category: Medical Code(s): I44.7 - Left bundle-branch block, unspecified - Assessment and plan all Dx Assessment and Plan for all problems:: Ms. Sanchez status post fixation of her left hip p.o. Up in bedside chair this morning on interview. Doing well with current pain control regimen. Physical therapy to work with her today. Anticipate possible discharge as soon as Wednesday pending referral to rehab facility. No acute needs at this time. Continuing home meds. Tends to require inpatient management
[2019-02-20 08:18] LABS: Albumin Level 2.6 gm/dL (3.4-5.0); Albumin/Globulin Ratio 0.9 (1.1-1.8); Anion Gap 16.5 mEq/L (5-15); Bilirubin,Total 0.3 mg/dL (0.2-1.0); Calcium 7.9 mg/dL (8.5-10.1); Globulin 2.9 gm/dl (1.3-3.2); Total Protein,Serum 5.5 gm/dL (6.4-8.2)
--- NOTE | 2019-02-20 16:21 | Progress Note ---
Subjective Date: 02/20/19 Time: 13:00 Principal diagnosis: Fracture neck of femur, left hip Interval history: Patient is status post left hip bipolar hemiarthroplasty post op day #1. Patient is lying down on the bed. Patient says she is doing well and reports no problem s. Patient has minimal pain and says it's well-controlled with medication. No history of any nausea or vomiting. No history of any cough, chest pain, shortness of breath or palpitations. No history of any distal tingling or numbness. She started mobilization with physical therapy. PN: Obj Ex Vital signs: Temp Pulse Resp BP Pulse Ox 98.7 F 61 16 125/45 L 100 02/20/19 16:00 02/20/19 16:00 02/20/19 16:00 02/20/19 16:00 02/20/19 16:00 Narrative: Laboratory Results - last 24 hr 02/20/19 06:49: WBC 14.6 H D, RBC 3.31 L, Hgb 10.3 L, Hct 32.0 L, MCV 96.8, MCH 31.0, MCHC 32.0, RDW 13.2, Plt Count 106 L D, MPV 9.1, Neut % (Auto) 85.9 H, Lymph % (Auto) 7.6 L, Hendricks % (Auto) 5.3, Eos % (Auto) 1.2, Baso % (Auto) 0.1, Neut # (Auto) 12.5 H, Lymph # (Auto) 1.1, Hendricks # (Auto) 0.8, Eos # (Auto) 0.2, Baso # (Auto) 0.0, Total Counted 100, Neutrophils % (Manual) 83 H, Band Neutrophils % 3.0, Lymphocytes % (Manual) 5 L, Atypical Lymphs % 3.0, Monocytes % (Manual) 6, Platelet Estimate Normal, Poikilocytosis 2+, Stomatocytes 2+ 02/20/19 07:35: Sodium 143, Potassium 4.5, Chloride 109 H, Carbon Dioxide 22, Anion Gap 16.5 H, BUN 15 D, Creatinine 0.89, Estimated Creat Clear 41, Estimated GFR 61, Est GFR ( Amer) 74 D, Glucose 173 H, Calcium 7.9 L, Total Bilirubin 0.3, AST 22, ALT 11 L, Alkaline Phosphatase 41 L, Total Protein 5.5 L, Albumin 2.6 L, Globulin 2.9, Albumin/Globulin Ratio 0.9 L Intake & Output 02/18/19 02/19/19 02/20/19 02/21/19 11:59 11:59 11:59 11:59 Intake Total 459 / 459 3394 / 3394 120 / 120 Output Total 165 / 165 375 / 375 Balance 294 / 294 3019 / 3019 120 / 120 Weight 127 lb 4 oz 127 lb 6 oz 127 lb 5.988 oz Exam General appearance: alert, active, awake, no acute distress Cardiovascular: regular rate & rhythm, normal peripheral pulses Respiratory: No respiratory distress; speaks in full sentences; breathing is nonlabored ABD: soft and non tender Neuro: alert, awake, oriented x 3 On examination of the lower extremities the limb lengths are equal. Thigh and calf are soft and nontender. On examination of the left hip the dressings are clean, dry and intact. No evidence of any bleeding or other complications noted. Distal pulses are 1+. Distal sensation is intact to light touch throughout. No motor deficits noted distally. Postoperative check x-ray is satisfactory. A paper copy of the x-ray given to the family. - Urinary Catheter Management Padron Cath placed during this visit: yes Urethral indwelling: Yes Reason for continuing: Surgical procedure Insertion date: 02/18/19 Insertion time: 23:18 Progress Note: A&P (1) Closed left hip fracture Status: Acute Current Visit: Yes (2) AICD (automatic cardioverter/defibrillator) present Status: Chronic Current Visit: No (3) Aortic valve stenosis with insufficiency Status: Chronic Current Visit: No (4) CHF (congestive heart failure) Status: Chronic Current Visit: No (5) Chronic kidney disease, stage 2 (mild) Status: Chronic Current Visit: No (6) Hypertensive heart disease Status: Chronic Current Visit: No (7) Left bundle branch block Status: Chronic Current Visit: No Assessment and Plan for All Diagnoses:: Ambulate, DVT prophylaxis, Precautions (posterior hip precautions) I have reviewed the findings and progress with the patient. Overall she is doi ng well and reports no problems. She started mobilization and is mobilizing well with the walker and and help from physical therapist. I have advised her to use abduction pillow when in bed and continue using this for 6 weeks postop. Continue standard precautions for posterior approach to the hip joint. Discontinue IV fluids. Continue PT OT, as needed pain medication; continue DVT prophylaxis for 6 weeks postop. Care management consult regarding discharge planning. Continue medical management as per Dr. Mata.
--- NOTE | 2019-02-21 07:25 | Discharge Summary ---
General - General Admission date:: 02/18/19 Discharge date: 02/21/19 HPI HPI: Lula is an 78-year-old female with history of pacemaker dependence who was at home yesterday when she fell. Of note she had fallen 2 weeks prior with out incident and was taken to [facility] where no fracture was identified. On presentation to [facility], she was found to have a left hip fracture. Admitted for further management of this. Denied any head trauma, loss of consciousness, confusion, chest pain, shortness of breath. Is otherwise at baseline. Her is with her today and states she is otherwise doing well. Orthopedics planning to take for surgery today. No history of insulin dependent diabetes, chronic kidney disease with creatinine greater than 2, need for dialysis. Is very active and was at court [place] in [place] yesterday with no chest pain or shortness of breath. Does have history of coronary artery disease with a remote placement of a stent and pacemaker however follows closely with cardiology and last saw Dr. Pereira's office this past Wednesday. Hospital Course Hospital Course: Patient was admitted. Subjected to left hip hemiarthroplasty and had excellent results. Worked with physical therapy afterwards and did well with transitioning and transfers and weightbearing. Continued on medications, pain was controlled very nicely with oral medications. Did require some supplemental oxygen. Accepted at [facility] for ongoing rehabilitation. She will be transferred there today. Please note she will need O2 at 2 L PRN for saturations less than 90%. Please note she will need PT/OT evaluation. Objective Vital signs: Temp Pulse Resp BP Pulse Ox 98.2 F 71 18 112/72 83 L 02/21/19 04:00 02/21/19 04:00 02/21/19 04:00 02/21/19 04:00 02/21/19 04:00 Narrative: Patient is pleasant. Slightly disoriented to time, but oriented x3 otherwise. Denies pain. Oropharynx clear, no lesions. Edentulous. No JVD. Good air movement in her lung aguila. Heart rate regular, soft holosystolic murmur. Abdomen soft nontender. Feet without edema. Able to wiggle toes well without pain. Left hip scar looks great. Results Labs on day of discharge: Labs from last 24 hours 02/20/19 02/20/19 07:35 06:49 Total Counted 100 Neutrophils % (Manual) 83 H Band Neutrophils % 3.0 Lymphocytes % (Manual) 5 L Atypical Lymphs % 3.0 Monocytes % (Manual) 6 Platelet Estimate Normal Poikilocytosis 2+ Stomatocytes 2+ Sodium 143 Potassium 4.5 Chloride 109 H Carbon Dioxide 22 Anion Gap 16.5 H BUN 15 D Creatinine 0.89 Estimated Creat Clear 41 Estimated GFR 61 Est GFR ( Amer) 74 D Glucose 173 H Calcium 7.9 L Total Bilirubin 0.3 AST 22 ALT 11 L Alkaline Phosphatase 41 L Total Protein 5.5 L Albumin 2.6 L Globulin 2.9 Albumin/Globulin Ratio 0.9 L DS: Diagnosis - Discharge Diagnosis (1) Closed left hip fracture Status: Acute (2) AICD (automatic cardioverter/defibrillator) present Status: Chronic (3) Aortic valve stenosis with insufficiency Status: Chronic (4) CHF (congestive heart failure) Status: Chronic (5) Chronic kidney disease, stage 2 (mild) Status: Chronic (6) Hypertensive heart disease Status: Chronic (7) Left bundle branch block Status: Chronic Discharge Plan - Patient Discharge Instructions ACTIVITY: Ambulate as tolerated, Up with assistance DIET: continue same diet Patient Instructions: Hip Fracture, Heart Failure, DI for Hip Fracture, DI for Surgical Site Infection - Follow up Plan Follow up with: Nelly Quinones APRN [Nurse Practitioner] - Disposition: Xfer [facility] Home Medications: Home Medications Medication Instructions Recorded Confirmed Type donepezil 5 mg tablet 5 mg PO HS 08/17/18 02/19/19 History aspirin 325 mg tablet 325 mg PO DAILY 11/16/18 02/18/19 History nitroglycerin 0.4 mg sublingual 0.4 mg SUBLINGUAL Q5M PRN #30 tab 02/15/19 02/18/19 Rx tablet Bisoprolol Fumarate [Bisoprolol 10 mg PO DAILY 02/18/19 02/19/19 History 10mg Tablet] Lisinopril [Lisinopril 2.5mg Tab] 2.5 mg PO BID 02/18/19 02/18/19 History Hydrocod/Acet 5/325 mg [Pitcher 1 - 2 tab PO Q4HP PRN #24 tab 02/21/19 Rx 5/325mg tablet] Prescriptions/Medication Reconciliation: New Enoxaparin Sodium [Lovenox 30mg/0.3mL syringe] 30 mg SQ Q12H 21 Days syringe Hydrocod/Acet 5/325 mg [Pitcher 5/325mg tablet] 1 - 2 tab PO Q4HP PRN #24 tab PRN Reason: Moderate To Severe Pain Continued donepezil 5 mg tablet 5 mg PO HS aspirin 325 mg tablet 325 mg PO DAILY nitroglycerin 0.4 mg sublingual tablet 0.4 mg SUBLINGUAL Q5M PRN #30 tab PRN Reason: chest pain Bisoprolol Fumarate [Bisoprolol 10mg Tablet] 10 mg PO DAILY Lisinopril [Lisinopril 2.5mg Tab] 2.5 mg PO BID - Problem Reconciliation Problems Reviewed?: Yes
[2019-02-21 07:42] VITALS: BP 119/36
== END 2019-02-21 09:17 | DRG 470 ==
LOC: 2ND 20:36 → ER 20:36 → OBSVTOIN 23:45 → 2ND 23:46
PROVIDERS: ADMIT Internal Medicine Adolescent Medicine; ATTEND Internal Medicine Adolescent Medicine
CPT/HCPCS: 36415; 71010; 71045; 73030; 73080; 73502; 73560; 80048; 80053; 81001; 84484; 85007; 85025; 86850; 93005; 97110; 97161; 97166; 97530; 97535; 99285; C1713; C1776; J2405

== ENCOUNTER → 2019-03-07 13:00 | Outpatient (CLI) | payer MEDICARE, SELFPAY ==
--- NOTE | 2019-03-07 13:05 | XR_ITS ---
PROCEDURE: XR HIP LT 2-3V W/PELVIS CLINICAL INDICATION: sp LT hip hemiarthroplasty Follow-up left viv arthroplasty COMPARISON: XR HIP LT 2-3V W/PELVIS from 02/19/2019 FINDINGS: Status post left hemiarthroplasty of the hip with good alignment and no evidence of orthopedic complication. Incidental note made of osteoarthritic change of the right hip and vascular calcification. IMPRESSION: Status post left viv arthroplasty with good alignment Dictated by: Agustín Ludwig MD 03/07/2019 13:41 Electronically signed by Agustín Ludwig MD in [place] 03/07/2019 13:41
== END ==
PROVIDERS: PCP Internal Medicine Adolescent Medicine; Visit Provider Orthopaedic Surgery
DX: Z48.89 Encounter for other specified surgical aftercare (principal); S72.002D Fracture of unspecified part of neck of left femur, subsequent encounter for closed fracture with routine healing
CPT/HCPCS: 73502

== ENCOUNTER → 2019-04-04 13:31 | Outpatient (CLI) | payer MEDICARE, SELFPAY ==
--- NOTE | 2019-04-04 13:37 | XR_ITS ---
PROCEDURE: XR HIP LT 2-3V W/PELVIS CLINICAL INDICATION: sp LT hip hemiarthroplasty DOS 02/19/19 COMPARISON: XR HIP LT 2-3V W/PELVIS from 03/07/2019 FINDINGS: Status post left hip hemiarthroplasty. Good alignment with no evidence of orthopedic complication. Osteoarthritic changes are present involving the right hip and symphysis pubis IMPRESSION: No change status post left hip hemiarthroplasty Dictated by: Agustín Ludwig MD 04/04/2019 15:26 Electronically signed by Agustín Ludwig MD in [place] 04/04/2019 15:26
== END ==
PROVIDERS: PCP Internal Medicine Adolescent Medicine; Visit Provider Orthopaedic Surgery
DX: Z96.642 Presence of left artificial hip joint (principal); M25.552 Pain in left hip
CPT/HCPCS: 73502

== ENCOUNTER → 2019-04-11 13:14 | Outpatient (CLI) | payer MEDICARE, SELFPAY ==
--- NOTE | 2019-04-11 13:15 | XR_ITS ---
PROCEDURE: XR DEXA AXIAL SKELETON CLINICAL HISTORY: evaluate for osteoporosis COMPARISON: No exams were available for comparison FINDINGS: L1-L4 density is 1.246 grams/centimeters sq with T-score of 0.6. Right femoral neck density is 0.867 grams/centimeters sq with a T-score of -1.2. Radius 33 percent density is 0.648 grams/centimeters sq with a T-score -2.7 IMPRESSION: Osteoporosis with high fracture risk. Treatment advised. Suggest follow-up exam April 2020 Dictated by: Agustín Ludwig MD 04/11/2019 18:03 Electronically signed by Agustín Ludwig MD in [place] 04/11/2019 18:03
== END ==
PROVIDERS: PCP Nurse Practitioner Family; Visit Provider Orthopaedic Surgery
DX: M81.0 Age-related osteoporosis without current pathological fracture (principal)
CPT/HCPCS: 77080

== ENCOUNTER → 2019-05-17 12:19 | Outpatient (CLI) | payer MEDICARE, SELFPAY ==
--- NOTE | 2019-05-17 12:24 | XR_ITS ---
PROCEDURE: XR HIP LT 2-3V W/PELVIS CLINICAL INDICATION: left hip hemiarthoplasty, dos 02/19/19 Follow-up left hip hemiarthroplasty COMPARISON: XR HIP LT 2-3V W/PELVIS from 04/04/2019 FINDINGS: Good alignment status post left hip hemiarthroplasty with no evidence of orthopedic complication. IMPRESSION: Status post left viv arthroplasty not significantly changed Dictated by: Agustín Ludwig MD 05/17/2019 17:50 Electronically signed by Agustín Ludwig MD in [place] 05/17/2019 17:50
== END ==
PROVIDERS: PCP Internal Medicine Adolescent Medicine; Visit Provider Orthopaedic Surgery
DX: Z96.642 Presence of left artificial hip joint (principal); M25.552 Pain in left hip
CPT/HCPCS: 73502

== ENCOUNTER → 2019-09-20 13:08 | Outpatient (CLI) | payer MEDICARE, SELFPAY ==
--- NOTE | 2019-09-20 13:22 | XR_ITS ---
PROCEDURE: XR HIP LT 2-3V W/PELVIS CLINICAL INDICATION: sp left hip hemiarthroplasty COMPARISON: XR HIP LT 2-3V W/PELVIS from 05/17/2019 FINDINGS: Status post left viv arthroplasty with good alignment and no evidence of orthopedic complication. Osteoarthritic changes are present involving the right hip. IMPRESSION: Good alignment status post left hip hemiarthroplasty Dictated by: Agustín Ludwig MD 09/20/2019 14:40 Electronically signed by Agustín Ludwig MD in [place] 09/20/2019 14:40
== END ==
PROVIDERS: PCP Internal Medicine Adolescent Medicine; Visit Provider Orthopaedic Surgery
DX: Z09 Encounter for follow-up examination after completed treatment for conditions other than malignant neoplasm (principal); Z96.642 Presence of left artificial hip joint; M25.552 Pain in left hip
CPT/HCPCS: 73502

== ENCOUNTER 2019-09-27 08:47 | Day surgery (SDC) | payer MEDICARE, SELFPAY ==
[2019-09-27] VITALS (7 sets, daily range): BP systolic 132–148; BP diastolic 71–107; PULSE 60–66; RESP 16–20; TEMP 36.9; O2SAT 95–100; BMI 22.1
--- NOTE | 2019-09-27 | IR_ITS ---
APPROVED REPORT Patient Location: Outpatient Data Processing Mechanic: OSMEL Garcia RT (R) PROCEDURES Pocket Revision Removal of old Pacemaker Implant of Permanent Pacemaker INDICATION Ischemic Cardiomyopathy, Normal Battery Depletion Informed consent was obtained prior to the procedure. COMPLICATIONS None Estimated Blood Loss: Less than 10 mls TECHNIQUE 1% lidocaine with epinephrine used to anesthetize the left anterior aspect of the chest. Scalpel was used to make the initial cutaneous incision and then used to dissect down to the existing pacemaker generator. The generator was removed from the existing pocket. Digital manipulation was required along with intermittent usage of scalpel in order to revise the pocket. The leads were removed from the old generator. The new generator was screwed to the existing leads and secured into place. Electronic interrogation proved acceptable thresholds and voltage within the lead. Antibiotics were used to flush the pocket and the pacemaker was secured using 3-0 silk into the newly revised pocket. Monocryl was used to close the subcutaneous tissue and then patrick were placed on the cutaneous area in order to approximate the incision. Patient was transferred to the postop holding area in stable condition. ANGIOGRAPHIC RESULTS Explanted Generator Model: [employer] [id number] Explanted Generator Serial No: [id number] Generator Model: Perciva ICD DR D413 Generator Serial No: [id number] RA Lead Model: 1882TC RA Lead Serial No: [id number] RV Lead Model: 7120Q RA Lead Serial No: [id number] Device Measurements: RA Lead: Intrinsic: 3.9mV Threshold: 1.1V@0.4ms Impedence: 4484ohms RV Lead: Intrinsic: 9.4mV Threshold: 0.8V@0.4ms Shock Impedence: 42ohms Parameters: Mode: DDDR Base/Max: 60/130ppm VF: 210bpm VT: 180bpm IMPRESSION Successful Pocket Revision Successful Removal of old Pacemaker Successful Implant of Permanent Pacemaker PLAN 1. post op wound care Electronically signed by : Mahendra Pereira, 09/28/2019 15:50:57
[2019-09-27 09:20] LABS: Basophils # 0.1 K/mm3 (0-0.2); Basophils % 0.6 % (0.1-2.0); Eosinophils # 0.5 K/mm3 (0.0-0.4); Eosinophils % 4.9 % (0.1-12.0); Hemoglobin 13.5 g/dL (12.2-16.2); Lymphocytes # 2.5 K/mm3 (0.7-4.5); Lymphocytes % 22.7 % (10-50); Mean Corpuscular HGB Conc 33.8 g/dL (31.8-35.4); Mean Corpuscular Hemoglobin 31.5 pg (27.0-31.2); Mean Corpuscular Volume 93.1 fl (81-99); Mean Platelet Volume 8.1 fl (7.4-10.4); Monocytes # 0.6 K/mm3 (0.1-1.0); Neutrophils # 7.4 K/mm3 (1.8-7.8); Neutrophils % 66.8 % (37.0-80.0); Platelet Count 197 K/mm3 (142-424); Red Blood Count 4.29 M/mm3 (4.20-5.40); Red Cell Distribution Width 14.4 % (11.5-17.5); White Blood Count 11.1 K/mm3 (4.8-10.8)
[2019-09-27 09:26] LABS: Chloride 107 mmol/L (98-107); Sodium 142 mmol/L (136-145)
[2019-09-27 09:29] LABS: Blood Urea Nitrogen 25 mg/dl (7-17); Calcium 9.5 mg/dl (8.4-10.2); Carbon Dioxide 25 mmol/L (22.0-30.0); Creatinine Clearance Estimated 41 mL/min (50-200); Estimated Glomerular Filt Rate 53 ml/min (>60); GFR (African American) 64 ML/MIN (>60); Glucose 182 mg/dl (74-100)
[2019-09-27 09:36] LABS: Anion Gap 14.7 mEq/L (5-15); Potassium 4.7 mmoL/L (3.5-5.1)
== END 2019-09-27 14:14 | disposition home or self-care (01) ==
LOC: CATHLAB 08:49
PROVIDERS: Visit Provider Internal Medicine
DX: Z45.010 Encounter for checking and testing of cardiac pacemaker pulse generator [battery] (principal); T82.191A Other mechanical complication of cardiac pulse generator (battery), initial encounter; I13.0 Hypertensive heart and chronic kidney disease with heart failure and stage 1 through stage 4 chronic kidney disease, or unspecified chronic kidney disease; I50.22 Chronic systolic (congestive) heart failure; N18.2 Chronic kidney disease, stage 2 (mild); I34.0 Nonrheumatic mitral (valve) insufficiency; I65.23 Occlusion and stenosis of bilateral carotid arteries; I25.10 Atherosclerotic heart disease of native coronary artery without angina pectoris; I35.1 Nonrheumatic aortic (valve) insufficiency; Z87.891 Personal history of nicotine dependence
CPT/HCPCS: 33263; 80048; 85025; 99152; C1721

== ENCOUNTER → 2020-02-21 10:32 | Outpatient (CLI) | payer MEDICARE, SELFPAY ==
--- NOTE | 2020-02-21 10:35 | XR_ITS ---
PROCEDURE: XR HIP LT 2-3V W/PELVIS CLINICAL INDICATION: sp left hip hemiarthroplasty Pain COMPARISON: CR XR HIP LT 2-3V W/PELVIS from 09/20/2019 FINDINGS: Status post left hip hemiarthroplasty with good alignment of the prosthesis and no evidence of orthopedic complication. AP view of the pelvis shows moderate osteoarthritic change of the right hip and degenerative changes in the lumbar spine. IMPRESSION: Good alignment status post left hip hemiarthroplasty Dictated by: Agustín Ludwig MD 02/21/2020 11:26 Agustín Ludwig MD in [place] 02/21/2020 11:26
== END ==
PROVIDERS: PCP Internal Medicine Adolescent Medicine; Visit Provider Orthopaedic Surgery
DX: Z09 Encounter for follow-up examination after completed treatment for conditions other than malignant neoplasm (principal); Z96.642 Presence of left artificial hip joint; M25.552 Pain in left hip
CPT/HCPCS: 73502

== ENCOUNTER 2020-03-30 10:55 | Observation (INO) | payer MEDICARE, SELFPAY ==
[2020-03-30] VITALS (10 sets, daily range): BP systolic 139–165; BP diastolic 44–73; PULSE 50–68; RESP 14–18; TEMP 36.3–37; O2SAT 97–99; BMI 21.8; BMI 21.9; BMI 22.4
--- NOTE | 2020-03-30 10:57 | ECG_ITS ---
APPROVED REPORT Exam: Resting ECG HR:61 bpm ECG Measurements Heart Rate 61 AXES MS 162 P QRSd 152 QRS -38 QT 488 T 154 QTc 491 Conclusion Normal sinus rhythm Left axis deviation Left bundle branch block Abnormal ECG Electronically signed by : Tomas Clark, 04/01/2020 07:26:30
--- NOTE | 2020-03-30 10:58 | XR_ITS ---
PROCEDURE: XR CHEST PORTABLE Referring Doctor: Kenan Gomez Patient Age:79Y CLINICAL HISTORY: chest pain COMPARISON: CR CXR1 CHEST-PORTABLE from 09/25/2016 CR XR CHEST PORTABLE from 02/18/2019 FINDINGS: AP portable upright CXR performed today and compared to 02/18/2019 and August 2016 CXR studies The lungs appear well expanded and clear with nothing definitely acute on today's CXR. No pneumonia. No pneumothorax but no pleural effusion. The heart is mildly enlarged with slight left ventricular configuration. Normal pulmonary vascularity. Pacer device overlies the left chest with atrial and ventricular leads intact and unchanged.. The lungs are clear without infiltrates, suspicious nodules, or pleural effusions. No acute bony abnormalities. IMPRESSION: Stable chest with nothing definitely acute Pacer overlying left chest. Borderline/mild cardiomegaly. Dictated by: Manuel Meraz MD 03/30/2020 13:06 Manuel Meraz MD in [place] 03/30/2020 13:06
--- NOTE | 2020-03-30 11:10 | [facility].EDCP ---
ED Disposition Clinical Impression: Chest pain Qualifiers: Chest pain type: precordial pain Qualified Code(s): R07.2 - Precordial pain Disposition: Admitted as Observation Condition on Discharge: Fair Referrals: Tomas Clark MD [Primary Care Provider] - - Critical Care Critical Care Time: No Attestation: On , the high probability of a clinically significant, sudden or life threatening deterioration of the following system(s) required my full and direct attention, intervention and personal management. The time I documented below is in addition to time spent performing reported procedures but includes the following listed in this critical care notation. Medical Decision Making - Medical Records Medical records reviewed: Yes: I reviewed the patient's medical records. - David Inquiry Pt receiving controlled substance: No Vital Signs: 03/30/20 10:56 03/30/20 11:49 03/30/20 12:37 Temperature 98.6 F Temperature Source Oral Pulse Rate [Apical] 68 60 60 Respiratory Rate 18 18 Blood Pressure [Right Arm] 165/73 H 144/58 H 139/65 Blood Pressure Mean [Right Arm] 103 86 89 Blood Pressure Source [Right Arm] Automatic Cuff Automatic Cuff Automatic Cuff Blood Pressure Position [Right Arm] Sitting Sitting Sitting 02 Sat by Pulse Oximetry 98 97 97 Oxygen Delivery Method Room Air Room Air Room Air 03/30/20 13:28 Temperature Temperature Source Pulse Rate [Apical] 60 Respiratory Rate Blood Pressure [Right Arm] 144/54 H Blood Pressure Mean [Right Arm] 84 Blood Pressure Source [Right Arm] Automatic Cuff Blood Pressure Position [Right Arm] Sitting 02 Sat by Pulse Oximetry 97 Oxygen Delivery Method Room Air - Lab Data Lab results reviewed: Yes: I reviewed the patient's lab results. Lab Results 03/30/20 11:10: WBC 11.3 H, RBC 4.70, Hgb 14.3, Hct 44.7, MCV 95.2, MCH 30.5, MCHC 32.1, RDW 14.7, Plt Count 161, MPV 8.5, Neut % (Auto) 71.2, Lymph % (Auto) 21.6, Posey % (Auto) 4.9, Eos % (Auto) 2.0, Baso % (Auto) 0.3, Neut # (Auto) 8.0 H, Lymph # (Auto) 2.4, Posey # (Auto) 0.6, Eos # (Auto) 0.2, Baso # (Auto) 0.0 03/30/20 11:10: Sodium 143, Potassium 4.3, Chloride 106, Carbon Dioxide 31 H, Anion Gap 10.3, BUN 24 H, Creatinine 1.00, Estimated Creat Clear 40, Estimated GFR 53 L, Est GFR ( Amer) 64, Glucose 170 H, Calcium 9.8, Troponin I 0.01 03/30/20 12:50: Troponin I 0.02 Result diagrams: 03/30/20 11:10 03/30/20 11:10 Orders (Tests/Meds): ED MEDICATIONS Discontinued Medications Generic Name Dose Route Start Last Admin Trade Name Freq PRN Reason Stop Dose Admin Aspirin 243 mg 03/30/20 10:58 03/30/20 11:05 Aspirin 81mg Chewable Tablet PO 03/30/20 10:59 243 mg ONCE ONE Administration ORDERS Category Date Time Status Covid-19 IgG/IgM ([facility]) Routine Lab 03/30/20 11:10 Received Troponin I Q3H Lab 03/30/20 15:50 Ordered - Radiology Data #1 Image(s): Chest Image Reviewed: Yes I reviewed the patient's radiology image Preliminary Findings: Normal/NAD - ECG Data Tracing #1 ECG initial impression date: 03/30/20 ECG initial impression time: 10:57 Conduction abnormalities present: LBBB (61bpm) ECG compared to prior tracings: there are no significant changes (compared from 02/18/2019) Chest Pain HPI - General Chief Complaint: Chest Pain Stated Complaint: chest pain Time Seen by Provider: 03/30/20 11:05 Mode of Arrival: Wheelchair Source of Information: Patient Limitations: No Limitations Description of Symptoms (Recalled from ER Triage Doc. by RN): Pt reports she began having chest pain yesterday, pt states the pain made it hard for her to breath. Pt reports the pain was intermittent in nature. Pt denies presence of pain at this time. - History of Present Illness HPI narrative: This is an 79-year-old female who presents from home with complaints of chest pain that began last night. Pain is intermittent and variable in timing and intensity. Pain rat
[2020-03-30 11:23] LABS: Chloride 106 mmol/L (98-107); Sodium 143 mmol/L (136-145)
[2020-03-30 11:24] LABS: Potassium 4.3 mmoL/L (3.5-5.1)
[2020-03-30 11:26] LABS: Blood Urea Nitrogen 24 mg/dl (7-17); Creatinine Clearance Estimated 40 mL/min (50-200); Estimated Glomerular Filt Rate 53 ml/min (>60); GFR (African American) 64 ML/MIN (>60)
[2020-03-30 11:27] LABS: Anion Gap 10.3 mEq/L (5-15); Calcium 9.8 mg/dl (8.4-10.2); Carbon Dioxide 31 mmol/L (22.0-30.0); Glucose 170 mg/dl (74-100)
[2020-03-30 11:33] LABS: Basophils % 0.3 % (0.1-2.0); Eosinophils # 0.2 K/mm3 (0.0-0.4); Hematocrit 44.7 % (37.0-47.0); Hemoglobin 14.3 g/dL (12.2-16.2); Lymphocytes # 2.4 K/mm3 (0.7-4.5); Lymphocytes % 21.6 % (10-50); Mean Corpuscular HGB Conc 32.1 g/dL (31.8-35.4); Mean Corpuscular Hemoglobin 30.5 pg (27.0-31.2); Mean Corpuscular Volume 95.2 fl (81-99); Mean Platelet Volume 8.5 fl (7.4-10.4); Monocytes # 0.6 K/mm3 (0.1-1.0); Monocytes % 4.9 % (1.7-9.3); Neutrophils % 71.2 % (37.0-80.0); Platelet Count 161 K/mm3 (142-424); Red Cell Distribution Width 14.7 % (11.5-17.5); White Blood Count 11.3 K/mm3 (4.8-10.8)
[2020-03-30 11:40] LABS: Troponin I 0.01 ng/ml (0.00-0.034)
--- NOTE | 2020-03-30 12:38 | PC.NURSE ---
per dr barger trop to be drawn at 2 hours
--- NOTE | 2020-03-30 12:46 | PC.NURSE ---
lab at bedside
[2020-03-30 13:29] LABS: Troponin I 0.02 ng/ml (0.00-0.034)
--- NOTE | 2020-03-30 13:31 | PC.NURSE ---
Called electronic resources librarian for Dr Clark
--- NOTE | 2020-03-30 13:32 | PC.NURSE ---
Dr Espitia returned called.
[2020-03-30 14:16] LABS: Coronavirus 19 IgG Antibody Negative (Negative); Coronavirus 19 IgM Antibody Negative (Negative)
--- NOTE | 2020-03-30 17:41 | PC.NURSE ---
pt has done well since arrival to the floor. no complaints of chest pain. teds were on pt but pt did not like them and refused to wear them. 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 vss. will cont. to monitor.
[2020-03-31] VITALS: BP 144/63; PULSE 60; PULSE 61; RESP 16; TEMP 36.3; O2SAT 97
[2020-03-31 04:00] VITALS: BP 149/67; PULSE 60; RESP 16; TEMP 36.3; O2SAT 98
--- NOTE | 2020-03-31 04:37 | PC.NURSE ---
pt has rested some t/o shift, has been up to use bathroom several times this shift with standby assist, at beginning of shift pt was AxOx3, as shift progressed, pt seemed to be more confused, systolic BP 142-149, pt has had no complaints of SOA or chest pain this shift, did complain of headache and was treated per MAR
[2020-03-31 04:58] VITALS: BMI 22.4
[2020-03-31 06:12] LABS: Basophils % 0.3 % (0.1-2.0); Eosinophils # 0.3 K/mm3 (0.0-0.4); Eosinophils % 4.3 % (0.1-12.0); Hematocrit 40.6 % (37.0-47.0); Hemoglobin 13.5 g/dL (12.2-16.2); Lymphocytes # 1.8 K/mm3 (0.7-4.5); Mean Corpuscular HGB Conc 33.3 g/dL (31.8-35.4); Mean Corpuscular Hemoglobin 30.7 pg (27.0-31.2); Mean Corpuscular Volume 92.3 fl (81-99); Mean Platelet Volume 9.5 fl (7.4-10.4); Monocytes # 0.5 K/mm3 (0.1-1.0); Monocytes % 7.3 % (1.7-9.3); Neutrophils # 3.7 K/mm3 (1.8-7.8); Neutrophils % 59.1 % (37.0-80.0); Platelet Count 123 K/mm3 (142-424); Red Cell Distribution Width 14.4 % (11.5-17.5); White Blood Count 6.3 K/mm3 (4.8-10.8)
[2020-03-31 06:21] LABS: Chloride 107 mmol/L (98-107); Potassium 4.2 mmoL/L (3.5-5.1); Sodium 140 mmol/L (136-145)
[2020-03-31 06:24] LABS: Anion Gap 9.2 mEq/L (5-15); Blood Urea Nitrogen 18 mg/dl (7-17); Calcium 9.3 mg/dl (8.4-10.2); Carbon Dioxide 28 mmol/L (22.0-30.0); Creatinine Clearance Estimated 42 mL/min (50-200); Estimated Glomerular Filt Rate 69 ml/min (>60); GFR (African American) 83 ML/MIN (>60); Glucose 140 mg/dl (74-100)
[2020-03-31 08:00] VITALS: BP 151/66; PULSE 60; RESP 20; TEMP 36.6; O2SAT 97
--- NOTE | 2020-03-31 08:18 | HMH.HPDC ---
General - General Admission date:: 03/30/20 Discharge date: 03/31/20 *Admission Date: 03/30/20 *Chief complaint: chest pain?? *History of present illness: Ms. Sanchez is a pleasant 79-year-old female with extensive coronary artery disease history, history of pacemaker replacement earlier this year in August, hip fracture a month ago, progressive debility, and mild cognitive impairment. Per documentation she presented to the ER yesterday due to some chest pain that was intermittent. EKG obtained showing paced rhythm but no new ST changes, serial troponins obtained. Concern for age and coronary artery disease and chest pain complaint led to admission. She has done well overnight with no further events. On exam this morning, she does not have her with her and so is unable to give a very clear history. She is not completely sure why she came to the hospital on interview this morning. States she was told to come get checked out by Dr. Dumont. States she saw him yesterday (which is not possible) and he wanted her to come get checked out. Unable to get clear history from her however she has no complaints today of shortness of breath, chest pain, nausea, hip pain. Knows who she is and where she is. Reviewed vitals and labs. [facility] History I have reviewed the patient's past medical history: Yes Medical History: Reports:: Carotid Stenosis, Congestive Heart Failure, Coronary Artery Disease, Cerebrovascular Accident, Hyperlipidemia, Hypertension, Internal Pacemaker, Renal Disease Denies:: Cancer, Diabetes Mellitus Type 1, Diabetes Mellitus Type 2, MRSA, Seizures *Have you ever received a pneumonia vaccine?: Yes *Have you received a flu vaccine this season?: Yes Other Medical History: Reports: Arthritis, Hypothyroidism Laterality Cases: Left: Arthroscopy Hip Other Surgeries: Yes: Angioplasty, Appendectomy, Hysterectomy-Total, Pacemaker Amputation: No Fractures: No - *Social History Last grade of school completed: High school graduate Smoking Status: Former smoker Tobacco Type: cigarettes # Packs/Day (cigarettes): 1 Alcohol Intake: never Substance Use Type: denies use *Occupational Status:: retired Housing: house Household Members: spouse *Travel in the last 8 weeks: None Family Hx:: No significant family history Review of Systems - Review of Systems Review of systems:: pertinent systems reviewed and negative unless documented below (14 point review of systems performed, pertinent positives and negatives as per HPI) Exam Vital signs and Labs for Last 24 Hours: Temp Pulse Resp BP Pulse Ox 97.4 F L 60 16 149/67 H 98 03/31/20 04:00 03/31/20 04:00 03/31/20 04:00 03/31/20 04:00 03/31/20 04:00 Laboratory Results - last 24 hr 03/30/20 11:10: WBC 11.3 H, RBC 4.70, Hgb 14.3, Hct 44.7, MCV 95.2, MCH 30.5, MCHC 32.1, RDW 14.7, Plt Count 161, MPV 8.5, Neut % (Auto) 71.2, Lymph % (Auto) 21.6, [place] % (Auto) 4.9, Eos % (Auto) 2.0, Baso % (Auto) 0.3, Neut # (Auto) 8.0 H, Lymph # (Auto) 2.4, [place] # (Auto) 0.6, Eos # (Auto) 0.2, Baso # (Auto) 0.0 03/30/20 11:10: Sodium 143, Potassium 4.3, Chloride 106, Carbon Dioxide 31 H, Anion Gap 10.3, BUN 24 H, Creatinine 1.00, Estimated Creat Clear 40, Estimated GFR 53 L, Est GFR ( Amer) 64, Glucose 170 H, Calcium 9.8, Troponin I 0.01 03/30/20 11:10: SARS-CoV-2 IgG Ab (Rapid) Negative, SARS-CoV-2 IgM Ab (Rapid) Negative 03/30/20 12:50: Troponin I 0.02 03/31/20 05:50: WBC 6.3 D, RBC 4.40, Hgb 13.5, Hct 40.6, MCV 92.3, MCH 30.7, MCHC 33.3, RDW 14.4, Plt Count 123 L, MPV 9.5, Neut % (Auto) 59.1, Lymph % (Auto) 29.0, [place] % (Auto) 7.3, Eos % (Auto) 4.3, Baso % (Auto) 0.3, Neut # (Auto) 3.7, Lymph # (Auto) 1.8, [place] # (Auto) 0.5, Eos # (Auto) 0.3, Baso # (Auto) 0.0 03/31/20 05:50: Sodium 140, Potassium 4.2, Chloride 107, Carbon Dioxide 28, Anion Gap 9.2, BUN 18 H, Creatinine 0.80, Estimated Creat Clear 42, Estimated GFR 69, Est GFR ( Amer) 83 D, Glucose 140 H, Calcium 9.3 I & O for Last 2
--- NOTE | 2020-03-31 09:48 | HMH.PHAVTE ---
[facility] Pharmacy VTE Monitoring - Patient Demographics Admission date: 03/30/20 Report Date: 03/31/20 Time: 09:48 Allergies/Adverse Reactions: Patient Allergies adhesive tape Allergy (Mild, Verified 02/21/20 11:53) BREAKOUT Penicillins [PENICILLINS] Allergy (Unknown, Verified 02/21/20 11:53) rivaroxaban [From Xarelto] Allergy (Verified 02/21/20 11:53) Rash Height: 1.63 m Weight: 59.647 kg Patient Problems: Current Active Problems Chest pain (Acute) Hypertension (Chronic) Chronic kidney disease, stage 2 (mild) (Chronic) CHF (congestive heart failure) (Chronic) - VTE Risk Labs: VTE Related Lab Results Hgb 13.5 g/dL (12.2-16.2) 03/31/20 05:50 Hct 40.6 % (37.0-47.0) 03/31/20 05:50 Plt Count 123 K/mm3 (142-424) L 03/31/20 05:50 BUN 18 mg/dl (7-17) H 03/31/20 05:50 Creatinine 0.80 mg/dl (0.52-1.04) 03/31/20 05:50 Estimated Creat Clear 42 mL/min (50-200) 03/31/20 05:50 VTE Score: 2 - Prophylaxis VTE Prophylaxis Ordered?: Yes Types of VTE Prophylaxis: TEDS Knee High Location of Applied Device: Bilateral Lower Extremeties
== END 2020-03-31 10:30 | disposition home or self-care (01) ==
LOC: ER 13:34 → 2ND 13:40
PROVIDERS: Admitting Provider Family Medicine; Emergency Provider Emergency Medicine; PCP Internal Medicine Adolescent Medicine; Visit Provider Internal Medicine Adolescent Medicine
DX: R07.9 Chest pain, unspecified (principal); I25.10 Atherosclerotic heart disease of native coronary artery without angina pectoris; I13.0 Hypertensive heart and chronic kidney disease with heart failure and stage 1 through stage 4 chronic kidney disease, or unspecified chronic kidney disease; N18.2 Chronic kidney disease, stage 2 (mild); I50.9 Heart failure, unspecified; E03.9 Hypothyroidism, unspecified; E78.5 Hyperlipidemia, unspecified; Z96.642 Presence of left artificial hip joint; Z79.899 Other long term (current) drug therapy; Z88.0 Allergy status to penicillin; Z88.8 Allergy status to other drugs, medicaments and biological substances
CPT/HCPCS: 36415; 71045; 80048; 84484; 85025; 86328; 93005; 99284; G0378

== ENCOUNTER → 2020-04-11 12:31 | Outpatient (CLI) | payer MEDICARE, SELFPAY ==
--- NOTE | 2020-04-11 13:19 | CT_ITS ---
PROCEDURE: CT HEAD/BRAIN WO CON CLINICAL INDICATION: HEADACHES COMPARISON: CT HDWO CT HEAD W/O CONTRAST from 03/05/2016 TECHNIQUE: Axial images obtained. All CT scans at the facility use one or more dose reduction, viz: automated exposure control, ma/kV adjustment per patient size (including targeted exams where dose is matched to indication, i.e. head), or iterative reconstruction technique. FINDINGS: No midline shift, mass effect, intracranial hemorrhage, hydrocephalus, or extra-axial fluid collection is evident. Encephalomalacia changes present in the right occipital lobe. There is generalized atrophy with hypoattenuation of the periventricular white matter consistent with microangiopathic changes. There are also some mild encephalomalacia changes in the left parietal occipital junction. The calvarium has an unremarkable appearance. No mastoid effusion. No sinus air-fluid level. IMPRESSION: 1. No acute intracranial findings. 2. Encephalomalacia change in the right occipital lobe and left parietal occipital junction Dictated by: Agustín Ludwig MD 04/11/2020 14:29 Agustín Ludwig MD in [place] 04/11/2020 14:29
== END ==
PROVIDERS: PCP Internal Medicine Adolescent Medicine; Visit Provider Internal Medicine Adolescent Medicine
DX: G44.89 Other headache syndrome (principal)
CPT/HCPCS: 70450

== ENCOUNTER → 2021-01-09 12:09 | Outpatient (CLI) | payer MEDICARE, SELFPAY ==
[2021-01-09 12:46] LABS: Basophils % 0.6 % (0.1-2.0); Eosinophils # 0.3 K/mm3 (0.0-0.4); Eosinophils % 4.2 % (0.1-12.0); Hematocrit 46.1 % (37.0-47.0); Hemoglobin 13.4 g/dL (12.2-16.2); Lymphocytes # 1.2 K/mm3 (0.7-4.5); Lymphocytes % 18.6 % (10-50); Mean Corpuscular Hemoglobin 30.1 pg (27.0-31.2); Mean Corpuscular Volume 103.6 fl (81-99); Mean Platelet Volume 11.3 fl (7.4-10.4); Monocytes # 0.5 K/mm3 (0.1-1.0); Monocytes % 7.7 % (1.7-9.3); Neutrophils # 4.5 K/mm3 (1.8-7.8); Platelet Count 179 K/mm3 (142-424); Red Blood Count 4.45 M/mm3 (4.20-5.40); Red Cell Distribution Width 14.4 % (11.5-17.5); White Blood Count 6.6 K/mm3 (4.8-10.8)
[2021-01-09 14:01] LABS: Alanine Aminotransferase 16 U/L (12-78); Albumin Level 3.9 g/dl (3.5-5.0); Albumin/Globulin Ratio 1.3 (1.1-1.8); Alkaline Phosphatase 57 U/L (38-126); Anion Gap 21.6 mEq/L (5-15); Aspartate Amino Transferase 45 U/L (14-36); Bilirubin,Total 0.3 mg/dl (0.2-1.3); Blood Urea Nitrogen 23 mg/dl (7-17); Calcium 8.9 mg/dl (8.4-10.2); Carbon Dioxide 23 mmol/L (22.0-30.0); Chloride 102 mmol/L (98-107); Estimated Glomerular Filt Rate 53 ml/min (>60); GFR (African American) 64 ML/MIN (>60); Glucose 282 mg/dl (74-100); Potassium 4.6 mmoL/L (3.5-5.1); Sodium 142 mmol/L (136-145); Total Protein,Serum 6.9 g/dl (6.3-8.2)
[2021-01-09 15:31] LABS: Hemoglobin A1C 7.8 % (4.0-6.0)
== END ==
PROVIDERS: Visit Provider Nurse Practitioner Family
DX: R73.03 Prediabetes (principal); F03.90 Unspecified dementia, unspecified severity, without behavioral disturbance, psychotic disturbance, mood disturbance, and anxiety; I10 Essential (primary) hypertension
CPT/HCPCS: 80053; 83036; 85025

== ENCOUNTER → 2021-06-10 13:07 | Outpatient (POV) | payer MEDICARE, SELFPAY | PROVIDERS: Visit Provider Dermatology | DX: Z00.00 Encounter for general adult medical examination without abnormal findings (principal) ==

== ENCOUNTER 2021-09-04 13:59 | Observation (INO) | payer MEDICARE, SELFPAY ==
[2021-09-04] VITALS (9 sets, daily range): BP systolic 112–161; BP diastolic 50–74; PULSE 60–80; RESP 14–20; TEMP 36.4–36.8; O2SAT 90–98; BMI 20.9; BMI 20.5
--- NOTE | 2021-09-04 16:38 | HMH.EDUTC ---
[facility] [place] Clinical Impression: Abdominal pain Qualifiers: Abdominal location: unspecified location Qualified Code(s): R10.9 - Unspecified abdominal pain Disposition: Still a Patient Condition on Discharge: Fair Referrals: Tomas Clark MD [Primary Care Provider] - Time of Disposition: 16:52 Medical Decision Making - David Inquiry Pt receiving controlled substance: No David was queried for this patient: No Vital Signs: 09/04/21 16:10 Temperature 97.6 F Temperature Source Oral Pulse Rate [Right Brachial] 60 Respiratory Rate 14 Blood Pressure [Right Arm] 161/60 H Blood Pressure Mean [Right Arm] 93 Blood Pressure Source [Right Arm] Automatic Cuff Blood Pressure Position [Right Arm] Sitting 02 Sat by Pulse Oximetry 97 Oxygen Delivery Method Room Air Medical Decision Narrative: While talking with patient and performing assessment patient states that back of exam chair was hurting her back and wanted to lay back some, lowered the back of the chair and patient said that was better, Initially on assessment patient denied pain, denies fever, states that earlier she just had some nausea While talking with patient she grabbed her left lower stomach and said she was having pain and it was making her feel sick patient holding to lower abdomen Due to patient age and complaint now including abdominal pain and patient states that she had nausea after pain started discussed with Family and recommended transfer to the ED for further work up and evaluation and he agreed States that patient does not usually complain much Called ED spoke with Lianna and patient was moved to room 6 [facility] [place] - General Stated complaint: congestion, BAY, nausea Time Seen by Provider: 09/04/21 16:38 Mode of Arrival: Ambulatory Source of Information: Patient Limitations: No Limitations Description of Symptoms (Recalled from Triage Doc. by RN): PATIENT C/O NAUSEA SINCE THIS MORNING HEENT Symptoms (Recalled from RN notes): No Resp Symptoms (Recalled from RN notes): No Skin Symptoms (Recalled from RN notes): No MS Symptoms (Recalled from RN notes): No Functional Status (Recalled from RN notes): WNL - History of Present Illness Provider Complaint: states that this morning she was acting like she wasnt feeling well State that she told him she felt sick and she had a headache this morning and he give her an asprin and it was better. States that he she eats alot of junk food an he thought it may have made her sick Patient Denies any chest pain however while performing assessment patient grabbed her left lower abdomen and said it was hurting when initially she denied pain States that when it hurts like that it makes her sick at her stomach states that she usually dont complain much so he was concerned - Related Data Home Medications Medication Instructions Recorded Confirmed aspirin 325 mg tablet 325 mg PO DAILY 11/16/18 03/30/20 Previous Rx's Medication Instructions Recorded nitroglycerin 0.4 mg sublingual 0.4 mg SUBLINGUAL Q5M PRN #30 tab 02/15/19 tablet lisinopril 2.5 mg tablet See Rx Instructions .ROUTE 11/28/20 .COMPLEX #180 tab bisoprolol fumarate 10 mg tablet See Rx Instructions .ROUTE 05/19/21 .COMPLEX #90 tab Allergies Allergy/AdvReac Type Severity Reaction Status Date / Time adhesive tape Allergy Mild BREAKOUT Verified 02/21/20 11:53 Penicillins [PENICILLINS] Allergy Unknown Verified 02/21/20 11:53 rivaroxaban [From Xarelto] Allergy Rash Verified 02/21/20 11:53 - Worker's Comp Is this a Worker's Comp case?: No [facility] History - Hepatitis A Screen Attestation statement:: This patient has been screened for Hepatitis A risk factors. I have reviewed the patient's past medical history: Yes Medical History: Reports:: Carotid Stenosis, Congestive Heart Failure, Coronary Artery Disease, Cerebrovascular Accident, Hyperlipidemia, Hypertension, Internal Pacemaker, Renal Disease Denies:: [place]
--- NOTE | 2021-09-04 16:45 | PC.NURSE ---
PATIENT SENT TO ER PER Sophie MIMS APRN FOR FUTHER EVALUATION. REPORT GIVEN TO Steve CRUZ RN BY Sophie MIMS APRN
--- NOTE | 2021-09-04 16:50 | PC.NURSE ---
ED MD at
--- NOTE | 2021-09-04 17:06 | CT_ITS ---
PROCEDURE INFORMATION: Exam: CT Abdomen And Pelvis With Contrast Exam date and time: 09/04/2021 6:29 PM Age: 81 years old Clinical indication: Abdominal pain; Flank; Left; Additional info: Left flank pain TECHNIQUE: Imaging protocol: Computed tomography of the abdomen and pelvis with contrast. Total images: 285 Radiation optimization: All CT scans at this facility use at least one of these dose optimization techniques: automated exposure control; mA and/or kV adjustment per patient size (includes targeted exams where dose is matched to clinical indication); or iterative reconstruction. Contrast material: ISOVUE; Contrast volume: 75 ml; Contrast route: IV; COMPARISON: CR XR HIP LT 2-3V W/PELVIS 02/21/2020 10:51 AM FINDINGS: Lungs: Mild peripheral fibrosis and or subsegmental atelectasis in the lung bases. Heart: Moderate cardiomegaly with left ventricular dilatation. Pacemaker leads partially visualized without gross complication or change. Probable stent placements in the LAD and circumflex versus severe calcific atherosclerosis. Mediastinal space: The visualized distal esophagus is largely contracted without gross abnormality. Liver: Normal contour. No mass lesions. No intrahepatic biliary ductal dilatation. Gallbladder and bile ducts: Prior cholecystectomy with expected mild postoperative dilatation of the common bile duct. Pancreas: Mild pancreatic atrophy without acute abnormality. No pancreatic ductal dilatation. Spleen: Granulomatous calcifications in the spleen without acute splenic abnormality. Adrenal glands: Normal. No adrenal mass. Kidneys and ureters: Asymmetric left-sided perinephric stranding with mild-moderate hydronephrosis and hydroureter. There is a 3.5 mm distal left ureteral stone on series 3, image 95, located about 5 cm proximal to the UVJ. There are bilateral renal cortical lesions demonstrating low density values and circumscribed margins favoring simple renal cysts. No further imaging evaluation is required. Stomach and bowel: The stomach is unremarkable. The small bowel is nondilated with no gross abnormality. No acute colonic abnormalities. Mild diverticulosis involving the distal colon without evidence of acute diverticulitis. Appendix: The appendix is not identified. No secondary signs of appendicitis. Intraperitoneal space: No free fluid or air. Vasculature: Moderate atherosclerotic aortoiliac calcification without aneurysm. Short segment hypodensity within the right common femoral vein sparing the wall although there is moderate local streak artifact in the region. The appearance is concerning for short segment nonocclusive deep venous thrombosis measuring about 2 cm in length. Consider right lower extremity Doppler assessment. Lymph nodes: No adenopathy. Urinary bladder: The bladder is largely contracted.There is a small amount of air in the urinary bladder, probably related to recent catheterization although clinical correlation is recommended. No gross signs of fistula or infection otherwise. Reproductive: Prior hysterectomy. Bones/joints: No acute osseous abnormalities. Osteopenia. Unipolar left hip arthroplasty without gross hardware complication. Soft tissues: Very small epigastric anterior midline fatty abdominal wall hernia with no bowel herniation or changes of strangulation. IMPRESSION: 1. There is a 3.5 mm distal left ureteral stone located about 5 mm from the UVJ, with mild-moderate left hydronephrosis and proximal hydroureter. 2. Suspected short segment nonocclusive deep venous thrombosis in the right common femoral vein measuring about 2 cm in length. There is moderate streak
--- NOTE | 2021-09-04 17:18 | PC.NURSE ---
JLUIS Ring at
[2021-09-04 17:47] LABS: Basophils # 0.1 K/mm3 (0-0.2); Basophils % 1.1 % (0.1-2.0); Eosinophils # 0.1 K/mm3 (0.0-0.4); Eosinophils % 0.6 % (0.1-12.0); Hematocrit 41.9 % (37.0-47.0); Hemoglobin 13.2 g/dL (12.2-16.2); Lymphocytes # 1.2 K/mm3 (0.7-4.5); Lymphocytes % 12.4 % (10-50); Mean Corpuscular HGB Conc 31.6 g/dL (31.8-35.4); Mean Corpuscular Hemoglobin 30.6 pg (27.0-31.2); Mean Corpuscular Volume 96.9 fl (81-99); Mean Platelet Volume 8.6 fl (7.4-10.4); Monocytes # 0.4 K/mm3 (0.1-1.0); Monocytes % 3.8 % (1.7-9.3); Neutrophils # 8.1 K/mm3 (1.8-7.8); Neutrophils % 82.1 % (37.0-80.0); Platelet Count 188 K/mm3 (142-424); Red Blood Count 4.33 M/mm3 (4.20-5.40); Red Cell Distribution Width 14.2 % (11.5-17.5); White Blood Count 9.9 K/mm3 (4.8-10.8)
[2021-09-04 17:54] LABS: Chloride 106 mmol/L (98-107); Sodium 140 mmol/L (136-145)
[2021-09-04 17:55] LABS: Microscopic, Urine URINE MICROSCOPIC (MICROSCOPIC)
[2021-09-04 17:55] LABS: Potassium 5.1 mmoL/L (3.5-5.1)
[2021-09-04 17:57] LABS: Alanine Aminotransferase 18 U/L (12-78); Alkaline Phosphatase 67 U/L (38-126); Anion Gap 13.1 mEq/L (5-15); Aspartate Amino Transferase 26 U/L (14-36); Bilirubin,Total 0.5 mg/dl (0.2-1.3); Blood Urea Nitrogen 24 mg/dl (7-17); Calcium 9.5 mg/dl (8.4-10.2); Carbon Dioxide 26 mmol/L (22.0-30.0); Creatinine Clearance Estimated 40 mL/min (50-200); Estimated Glomerular Filt Rate 53 ml/min (>60); GFR (African American) 64 ML/MIN (>60); Glucose 250 mg/dl (74-100); Lactic Acid 1.5 mmol/L (0.7-2.1); Lipase 35 U/L (23-300)
[2021-09-04 17:58] LABS: Albumin Level 3.9 g/dl (3.5-5.0); Albumin/Globulin Ratio 1.3 (1.1-1.8); Globulin 3.1 g/dL (1.3-3.2)
[2021-09-04 17:59] LABS: Appearance,Urine CLEAR (Clear); Bilirubin,Urine Negative (Negative); Blood, Urine 3+ (Negative); Color,Urine YELLOW (Yellow); Glucose,Urine (UA) TRACE (Negative); Ketones,Urine TRACE (Negative); Leukocyte Esterase,Urine Negative (Negative); Nitrate,Urine POSITIVE (Negative); Protein,Urine 2+ (Negative); Specific Gravity, Urine >= 1.030 (1.005-1.030); Urobilinogen,Urine 0.2 EU/dl (0.2)
[2021-09-04 18:24] LABS: WBC,Urine Occasional #/hpf (0-3)
[2021-09-04 18:25] LABS: Bacteria,Urine 3+ /lpf
--- NOTE | 2021-09-04 19:35 | PC.NURSE ---
received critical finding report from gerry to .
--- NOTE | 2021-09-04 19:41 | HMH.EDGENADL ---
ED Disposition Clinical Impression: Urinary tract obstruction by kidney stone Disposition: Admitted As Inpatient Condition on Discharge: Good - Critical Care Critical Care Time: No Attestation: On 09/04/21, the high probability of a clinically significant, sudden or life threatening deterioration of the following system(s) required my full and direct attention, intervention and personal management. The time I documented below is in addition to time spent performing reported procedures but includes the following listed in this critical care notation. Medical Decision Making - Medical Records Medical records reviewed: Yes: I reviewed the patient's medical records. - David Inquiry Pt receiving controlled substance: No David was queried for this patient: No Vital Signs: 09/04/21 16:10 09/04/21 16:56 Temperature 97.6 F 97.6 F Temperature Source Oral Oral Pulse Rate [Right Brachial] 60 60 Respiratory Rate 14 16 Blood Pressure [Right Arm] 161/60 H 153/63 H Blood Pressure Mean [Right Arm] 93 93 Blood Pressure Source [Right Arm] Automatic Cuff Blood Pressure Position [Right Arm] Sitting 02 Sat by Pulse Oximetry 97 97 Oxygen Delivery Method Room Air - Lab Data Lab results reviewed: Yes: I reviewed the patient's lab results. Lab Results 09/04/21 17:37: WBC 9.9, RBC 4.33, Hgb 13.2, Hct 41.9, MCV 96.9, MCH 30.6, MCHC 31.6 L, RDW 14.2, Plt Count 188, MPV 8.6, Neut % (Auto) 82.1 H, Lymph % (Auto) 12.4, [place] % (Auto) 3.8, Eos % (Auto) 0.6, Baso % (Auto) 1.1, Neut # (Auto) 8.1 H, Lymph # (Auto) 1.2, [place] # (Auto) 0.4, Eos # (Auto) 0.1, Baso # (Auto) 0.1 09/04/21 17:37: Sodium 140, Potassium 5.1, Chloride 106, Carbon Dioxide 26, Anion Gap 13.1, BUN 24 H, Creatinine 1.00, Estimated Creat Clear 40, Estimated GFR 53 L, Est GFR ( Amer) 64, Glucose 250 H, Calcium 9.5, Total Bilirubin 0.5, AST 26, ALT 18, Alkaline Phosphatase 67, Total Protein 7.0, Albumin 3.9, Globulin 3.1, Albumin/Globulin Ratio 1.3, Lipase 35 09/04/21 17:37: Lactate 1.5 09/04/21 17:52: Urine Color Yellow, Urine Appearance Clear, Urine pH 6.0, Ur Specific [place] >= 1.030, Urine Protein 2+, Urine Glucose (UA) Trace, Urine Ketones Trace, Urine Blood 3+, Urine Nitrate Positive, Urine Bilirubin Negative, Urine Urobilinogen 0.2, Ur Leukocyte Esterase Negative, Urine RBC 10-20, Urine WBC Occasional, Ur Squamous Epith Cells 3-5, Urine Bacteria 3+ 09/04/21 20:30: SARS-CoV-2 (PCR) Not detected, Influenza A Untype (PCR) Not detected, Influenza Type B (PCR) Not detected Result diagrams: 09/04/21 17:37 09/04/21 17:37 Orders (Tests/Meds): ED MEDICATIONS Generic Name Dose Route Start Last Admin Trade Name Freq PRN Reason Stop Dose Admin Lactated Ringer's 500 mls @ 999 mls/hr 09/04/21 17:00 09/04/21 17:50 Lactated Ringer's 1000 Ml Bag IV 09/04/21 17:30 999 mls/hr .Q31M LINETTE Administration Ceftriaxone Sodium 1 gm/ 50 mls @ 100 mls/hr 09/04/21 21:00 09/04/21 21:08 Sodium Chloride IV 09/18/21 20:59 100 mls/hr Q24H LINETTE Administration Tamsulosin HCl 0.4 mg 09/05/21 21:00 Tamsulosin 0.4mg Capsule PO 10/05/21 20:59 HS LINETTE Discontinued Medications Generic Name Dose Route Start Last Admin Trade Name Freq PRN Reason Stop Dose Admin Iopamidol 75 ml 09/04/21 18:57 09/04/21 18:58 Iopamidol-370 (76%);100ml Bottle IV 09/04/21 18:58 75 ml ONCE ONE Administration Ondansetron HCl 4 mg 09/04/21 16:55 09/04/21 17:50 Ondansetron 4mg/2ml Vial IV 09/04/21 16:56 4 mg ONCE ONE Administration Sodium Chloride 10 ml 09/04/21 18:57 09/04/21 18:58 Sodium Chloride 0.9% 10ml Syr (Rad Only) IV 09/04/21 18:58 10 ml ONCE ONE Administration ORDERS Category Date Time Status Urology Consult [Consult to Urology] [CONS] Routine Cons 09/04/21 21:02 Active Urine Culture Stat Micro 09/04/21 17:52 Received Medical Decision Narrative: Patient is an 81-year-old female medical history of dementia to the ED with
--- NOTE | 2021-09-04 19:47 | PC.NURSE ---
paged dr harrell at this time
--- NOTE | 2021-09-04 19:53 | PC.NURSE ---
advised family we are waiting on dr harrell to call back and that the md would give them an update after that conversation occurs.
--- NOTE | 2021-09-04 20:27 | PC.NURSE ---
Pt placed on waiting list at [facility]
[2021-09-04 20:48] LABS: Coronavirus 19, PCR Not Detected (NotDetected); Influenza A, PCR Not Detected (NotDetected); Influenza B, PCR Not Detected (NotDetected)
--- NOTE | 2021-09-04 20:56 | PC.NURSE ---
MD on phone with [facility] and [facility] is currently on diverted
--- NOTE | 2021-09-04 20:57 | PC.NURSE ---
pt placed on waiting list @ [facility]
--- NOTE | 2021-09-04 21:05 | PC.NURSE ---
Patient admitted to 208
--- NOTE | 2021-09-04 21:09 | PC.NURSE ---
questioned re: need for blood cultures to be drawn. states she does not need cultures drawn .
--- NOTE | 2021-09-04 21:20 | PC.NURSE ---
Dr. Salinas speaking with MD at [facility]
--- NOTE | 2021-09-04 21:27 | PC.NURSE ---
attempted to call report, spoke with catina. she's unable to take report at this time
--- NOTE | 2021-09-04 21:28 | PC.NURSE ---
Face sheet faxed to [facility]
--- NOTE | 2021-09-04 21:48 | PC.NURSE ---
patient up to floor via wheelchair @ this time
[2021-09-05] VITALS: BP 142/52; PULSE 60; RESP 18; TEMP 36.4; O2SAT 93
--- NOTE | 2021-09-05 03:25 | PC.NURSE ---
Addendum entered by Monisha Miguel RN 09/05/21 05:36: [facility] called update given- no beds available at this time. Original Note: Patient admitted to the best of this RN's ability, patient has dementia and unsure of some questions. Patient not complaining of any pain or nausea thus far. Patient voided several times throughout shift. [facility] called for an update and states no beds are available at this time. Patient has US Doppler ordered for this am R/t DVT in Rt femoral. VSS bed alarm on.
[2021-09-05 04:51] VITALS: BP 131/47; PULSE 60; RESP 16; TEMP 36.4; O2SAT 94
[2021-09-05 06:51] LABS: Basophils # 0.1 K/mm3 (0-0.2); Basophils % 0.7 % (0.1-2.0); Eosinophils # 0.2 K/mm3 (0.0-0.4); Eosinophils % 2.1 % (0.1-12.0); Hematocrit 35.9 % (37.0-47.0); Hemoglobin 11.9 g/dL (12.2-16.2); Lymphocytes # 1.8 K/mm3 (0.7-4.5); Mean Corpuscular HGB Conc 33.2 g/dL (31.8-35.4); Mean Corpuscular Hemoglobin 30.7 pg (27.0-31.2); Mean Corpuscular Volume 92.5 fl (81-99); Mean Platelet Volume 9.9 fl (7.4-10.4); Monocytes # 0.7 K/mm3 (0.1-1.0); Monocytes % 6.8 % (1.7-9.3); Neutrophils # 7.2 K/mm3 (1.8-7.8); Neutrophils % 72.3 % (37.0-80.0); Platelet Count 136 K/mm3 (142-424); Red Blood Count 3.88 M/mm3 (4.20-5.40); Red Cell Distribution Width 14.2 % (11.5-17.5); White Blood Count 9.9 K/mm3 (4.8-10.8)
[2021-09-05 07:05] LABS: Anion Gap 10.4 mEq/L (5-15); Blood Urea Nitrogen 24 mg/dl (7-17); Calcium 8.6 mg/dl (8.4-10.2); Carbon Dioxide 24 mmol/L (22.0-30.0); Chloride 112 mmol/L (98-107); Creatinine Clearance Estimated 36 mL/min (50-200); Estimated Glomerular Filt Rate 47 ml/min (>60); GFR (African American) 57 ML/MIN (>60); Glucose 148 mg/dl (74-100); Potassium 5.4 mmoL/L (3.5-5.1); Sodium 141 mmol/L (136-145)
--- NOTE | 2021-09-05 07:16 | HMH.HP ---
*Admission Date: 09/04/21 *Chief complaint: flank pain, dysuria *History of present illness: Ms. Sanchez is an 81-year-old female with history of dementia and hypertension. Presented to the emergency room last night with left-sided flank pain. She is no acute distress on arrival, afebrile. Exam remarkable for tenderness to palpation in her CVA region. Imaging obtained and urinalysis. Positive finding on CT abdomen for left-sided 3.5 mm stone obstructing left proximal ureter. Urine concerning for UTI, positive for nitrates, leukocytes, bacteria. Given her age and need for urologic intervention, attempts were made to transfer the patient. She is on a wait list at [facility] at this time. Patient admitted for further observation due to inability to directly transfer. Concerns at this time include pyelonephritis, obstructing nephrolithiasis. Urology consult placed at [facility]. Further note, CT shows concern for possible DVT of the right common femoral vein. Ultrasound ordered for the morning. Denies nausea, vomiting, diarrhea. On interview this morning, denies any pain. Has pain on abdominal exam however. Denies CVA tenderness today. Does not know why she is at the hospital other than I was sick . Of note, history and review of systems complicated by patient's dementia. [facility] History I have reviewed the patient's past medical history: Yes Medical History: Reports:: Carotid Stenosis, Congestive Heart Failure, Coronary Artery Disease, Cerebrovascular Accident, Deep Vein Thrombosis, Hyperlipidemia, Hypertension, Internal Pacemaker, Renal Disease Denies:: Cancer, Diabetes Mellitus Type 1, Diabetes Mellitus Type 2, MRSA, Seizures *Have you ever received a pneumonia vaccine?: Yes *Have you received a flu vaccine this season?: Yes Other Medical History: Reports: Arthritis, Hypothyroidism Laterality Cases: Left: Arthroscopy Hip Other Surgeries: Yes: Angioplasty, Appendectomy, Cholecystectomy, Hysterectomy-Total, Pacemaker Amputation: No Fractures: No - *Social History Smoking Status: Former smoker Tobacco Type: cigarettes # Packs/Day (cigarettes): 1 Alcohol Intake: never Substance Use Type: denies use *Occupational Status:: retired Housing: house Household Members: spouse *Travel in the last 8 weeks: None Family Hx:: Unable to obtain, Non-contributory Review of Systems - Review of Systems Review of systems:: pertinent systems reviewed and negative unless documented below (14 point review of systems performed, pertinent positives and negatives as per HPI) Meds Home Medications Medication Instructions Recorded Confirmed Type aspirin 325 mg tablet 325 mg PO DAILY 11/16/18 09/04/21 History Donepezil HCl [Aricept 5mg 5 mg PO DAILY 09/04/21 09/04/21 History Tablet] bisoproloL fumarate [Bisoprolol 10 mg PO DAILY 09/04/21 09/05/21 History Fumarate] Allergies Allergy/AdvReac Type Severity Reaction Status Date / Time adhesive tape Allergy Mild BREAKOUT Verified 02/21/20 11:53 Penicillins [PENICILLINS] Allergy Unknown Verified 02/21/20 11:53 rivaroxaban [From Xarelto] Allergy Rash Verified 02/21/20 11:53 Exam Vital signs and Labs for Last 24 Hours: Temp Pulse Resp BP Pulse Ox 97.5 F L 60 16 131/47 L 94 L 09/05/21 04:51 09/05/21 04:51 09/05/21 04:51 09/05/21 04:51 09/05/21 04:51 Laboratory Results - last 24 hr 09/04/21 17:37: WBC 9.9, RBC 4.33, Hgb 13.2, Hct 41.9, MCV 96.9, MCH 30.6, MCHC 31.6 L, RDW 14.2, Plt Count 188, MPV 8.6, Neut % (Auto) 82.1 H, Lymph % (Auto) 12.4, [place] % (Auto) 3.8, Eos % (Auto) 0.6, Baso % (Auto) 1.1, Neut # (Auto) 8.1 H, Lymph # (Auto) 1.2, [place] # (Auto) 0.4, Eos # (Auto) 0.1, Baso # (Auto) 0.1 09/04/21 17:37: Sodium 140, Potassium 5.1, Chloride 106, Carbon Dioxide 26, Anion Gap 13.1, BUN 24 H, Creatinine 1.00, Estimated Creat Clear 40, Estimated GFR 53 L, Est GFR ( Amer) 64, Glucose 250 H, Calcium 9.5, Total Bilirubin 0.5, AST 26, ALT 18, [place]
[2021-09-05 08:00] VITALS: BP 126/92; PULSE 61; RESP 16; TEMP 36.8; O2SAT 92
--- NOTE | 2021-09-05 08:03 | P.CONPHA_ITS ---
[facility] Pharmacy VTE Monitoring - Patient Demographics Admission date: 09/04/21 Report Date: 09/05/21 Time: 08:03 Allergies/Adverse Reactions: Patient Allergies adhesive tape Allergy (Mild, Verified 02/21/20 11:53) BREAKOUT Penicillins [PENICILLINS] Allergy (Unknown, Verified 02/21/20 11:53) rivaroxaban [From Xarelto] Allergy (Verified 02/21/20 11:53) Rash Height: 1.68 m Weight: 58.105 kg Patient Problems: Current Active Problems Urinary tract obstruction by kidney stone (Acute) - VTE Risk Labs: VTE Related Lab Results Hgb 11.9 g/dL (12.2-16.2) L 09/05/21 06:36 Hct 35.9 % (37.0-47.0) L 09/05/21 06:36 Plt Count 136 K/mm3 (142-424) L D 09/05/21 06:36 BUN 24 mg/dl (7-17) H 09/05/21 06:36 Creatinine 1.10 mg/dl (0.52-1.04) H 09/05/21 06:36 Estimated Creat Clear 36 mL/min (50-200) 09/05/21 06:36 VTE Score: 8 VTE Risk Level: Moderate Risk - Prophylaxis VTE Prophylaxis Ordered?: Yes Types of VTE Prophylaxis: TEDS Knee High Location of Applied Device: Bilateral Lower Extremeties
--- NOTE | 2021-09-05 08:05 | HMH.PHAINT ---
MEDICATION RECONCILIATION COMPLETED ON PATIENT USING EXTERNAL FILL HISTORY FROM PHARMACY. -PAULINE CANDELARIO, JUAN ANTONIOD
--- NOTE | 2021-09-05 12:29 | CA_ITS ---
FINAL REPORT TECHNIQUE: Ultrasound images of the deep venous system were obtained from the right groin to the calf veins. CLINICAL HISTORY: DVT OF RT CFV SEEN OF CT SCAN,EDEMA FINDINGS: There is partial thrombus in the right common femoral vein. The remaining deep venous system is normally compressible. IMPRESSION: Partial thrombus in the right common femoral vein. Reviewed, Interpreted and Dictated by Cheryle Tilley MD Transcribed by Miguelito Fragoso Authenticated by Cheryle Tilley MD on 09/05/2021 03:43:[address] [facility]
--- NOTE | 2021-09-05 13:07 | PC.NURSE ---
1244- spoke to call center. Pt bed available. Pt will be going to [facility]. 7 east room 730. 1245- notified radiology of need for imaging disk 1247- notified MD Mata
--- NOTE | 2021-09-05 13:12 | PC.NURSE ---
Attempted to call report to [facility]. Nurse unable to take report at this time d/t being in another pt's room. Gave call back number to commercial front load operator.
--- NOTE | 2021-09-05 13:34 | HMH.DCSUM ---
General - General Admission date:: 09/04/21 Discharge date: 09/05/21 HPI HPI: Ms. Sanchez is an 81-year-old female with history of dementia and hypertension. Presented to the emergency room last night with left-sided flank pain. She is no acute distress on arrival, afebrile. Exam remarkable for tenderness to palpation in her CVA region. Imaging obtained and urinalysis. Positive finding on CT abdomen for left-sided 3.5 mm stone obstructing left proximal ureter. Urine concerning for UTI, positive for nitrates, leukocytes, bacteria. Given her age and need for urologic intervention, attempts were made to transfer the patient. She is on a wait list at [facility] at this time. Patient admitted for further observation due to inability to directly transfer. Concerns at this time include pyelonephritis, obstructing nephrolithiasis. Urology consult placed at [facility]. Further note, CT shows concern for possible DVT of the right common femoral vein. Ultrasound ordered for the morning. Denies nausea, vomiting, diarrhea. On interview this morning, denies any pain. Has pain on abdominal exam however. Denies CVA tenderness today. Does not know why she is at the hospital other than I was sick . Of note, history and review of systems complicated by patient's dementia. Hospital Course Hospital Course: 81-year-old female with obstructing left ureteral stone. Has mild RICO on CKD. Concern for pyelonephritis giving perinephric stranding on imaging, hydronephrosis. Attempts made to transfer patient given no urologist in house. Patient on multiple wait list. Started on antibiotics, tamsulosin, straining of urine, and IV fluids. Problems addressed as follows Left-sided hydronephrosis Obstructive nephrolithiasis Pyelonephritis -Continue IV fluids. Continue IV antibiotics for infection -Tamsulosin initiated to relax ureter and help with passage -Continue monitoring and straining urine until patient is either transferred for urology consult or stone passes. -Patient excepted by [facility]. Will transfer to [facility] for further management. Has remained hemodynamically stable during admission. Pain controlled on current regimen. Last p.o. intake was lunch today 09/05/2021 between 11:30-12:30 Full code Objective Vital signs: Temp Pulse Resp BP Pulse Ox 98.3 F 61 16 126/92 H 92 L 09/05/21 08:00 09/05/21 08:00 09/05/21 08:00 09/05/21 08:00 09/05/21 08:00 Narrative: - Constitutional no acute distress, chronically ill appearing - *Routine HEENT Exam Head: Present: normocephalic Eye: Present: EOMI, PERRL ENT: Present: mucous membranes moist Comments: lesion on left cheek consistent with scratch/picking. - *Routine Neck Exam Present: supple. Absent: lymphadenopathy - *Routine Respiratory Exam Present: CTA bilaterally - *Routine Cardiovascular Exam Present: RRR - *Routine Abdominal Exam Present: soft, normoactive bowel sounds, tenderness (Palpation right hemiabdomen, no significant tenderness in left abdomen, no CVA tenderness on exam this morning.) - *Routine Rectal Exam Rectal:: deferred - *Routine Genitalia Exam Genitalia:: deferred - *Routine Extremities Exam Absent: cyanosis, clubbing, edema - *Routine Skin Exam Present: warm. Absent: rash - *Routine Neurological Exam Present: alert, Oriented to person and place only Results Labs on day of discharge: Labs from last 24 hours 09/05/21 09/05/21 09/04/21 06:36 06:36 20:30 WBC 9.9 RBC 3.88 L Hgb 11.9 L Hct 35.9 L MCV 92.5 MCH 30.7 MCHC 33.2 RDW 14.2 Plt Count 136 L D MPV 9.9 Neut % (Auto) 72.3 Lymph % (Auto) 18.0 Major % (Auto) 6.8 Eos % (Auto) 2.1 Baso % (Auto) 0.7 Neut # (Auto) 7.2 Lymph # (Auto) 1.8 Major # (Auto) 0.7 Eos # (Auto) 0.2 Baso # (Auto) 0.1 Sodium 141 Potassium 5.4 H Chloride 112 H C
--- NOTE | 2021-09-05 13:53 | PC.NURSE ---
Attempted to call report again to [facility], receiving nurse is giving blood at this time. Left contact info w/ front desk lead. Says that RN will return call as soon as he leaves room.
--- NOTE | 2021-09-05 14:32 | PC.NURSE ---
Called report to JLUIS Sage @ [facility]
[2021-09-05 15:29] VITALS: BP 136/92; PULSE 60; RESP 17; TEMP 36.8; O2SAT 90
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
--- NOTE | 2021-09-05 19:15 | PC.NURSE ---
Ems here to transport patient to [facility]. Patient stable at time of transport. VSS.
--- NOTE | 2021-09-05 19:15 | PC.NURSE ---
PT WAS TRANSFERRED VIA STRETCHER PER [facility] TO @ 191
== END 2021-09-05 19:18 | disposition short-term general hospital (02) ==
LOC: UTC 14:03 → ER 16:46 → 2ND 21:08
PROVIDERS: Admitting Provider Internal Medicine Adolescent Medicine; Emergency Provider Emergency Medicine; PCP Internal Medicine Adolescent Medicine; Visit Provider Internal Medicine Adolescent Medicine
DX: N20.0 Calculus of kidney (principal); N18.2 Chronic kidney disease, stage 2 (mild); Z79.899 Other long term (current) drug therapy; Z88.8 Allergy status to other drugs, medicaments and biological substances; I11.0 Hypertensive heart disease with heart failure; I50.9 Heart failure, unspecified; N12 Tubulo-interstitial nephritis, not specified as acute or chronic; N17.9 Acute kidney failure, unspecified; I82.411 Acute embolism and thrombosis of right femoral vein; Z20.822 Contact with and (suspected) exposure to COVID-19
CPT/HCPCS: G0378; 36415; 74177; 80048; 80053; 81001; 83605; 83690; 85025; 87086; 87088; 87186; 93971; 99285; C9803; J0696; J2405; Q9967; U0003; U0005

== ENCOUNTER 2021-11-10 14:48 | Emergency (ER) | payer MEDICARE, SELFPAY ==
[2021-11-10] VITALS (7 sets, daily range): BP systolic 134–145; BP diastolic 48–66; PULSE 56–64; RESP 18; TEMP 36.9–37.2; O2SAT 96–97; BMI 21.2
--- NOTE | 2021-11-10 14:53 | PC.NURSE ---
pt in restroom attempting to provide urine specimen
--- NOTE | 2021-11-10 15:06 | PC.NURSE ---
ED MD AT BEDSIDE TO ASSESS PT
--- NOTE | 2021-11-10 15:06 | PC.NURSE ---
urine sent to lab
--- NOTE | 2021-11-10 15:07 | CT_ITS ---
FINAL REPORT TECHNIQUE: Axial images through the abdomen and pelvis were performed without contrast.This study was performed with techniques to keep radiation doses as low as reasonably achievable, (ALARA). Individualized dose reduction techniques using automated exposure control or adjustment of mA and/or kV according to the patient's size were employed. CLINICAL HISTORY: hematuria COMPARISON: 09/04/2021 FINDINGS: ABDOMEN: There is scarring seen at the left lung base. There is streak artifact from pacemaker leads. The heart size is normal. Limited images of the liver are unremarkable. Patient is status post cholecystectomy. The spleen is normal. No adrenal mass is identified. The aorta is normal in caliber. There is no significant free fluid or adenopathy. There is a benign appearing right renal cyst measuring 1.4 cm. There is no nephrolithiasis. There is no hydronephrosis. PELVIS: There is streak artifact from left hip arthroplasty. The appendix is air-filled measuring at the upper limits of normal in size. The urinary bladder is unremarkable. There is no significant free fluid or adenopathy. There is questionable soft tissue density in the distal rectum. Mass cannot be excluded. IMPRESSION: No hydronephrosis or nephrolithiasis. Questionable soft tissue density in the distal rectum. Mass not excluded. Recommend correlation with digital exam. Reviewed, Interpreted and Dictated by Ej Allen MD Transcribed by Rosalba Saucedo Authenticated and [facility]
--- NOTE | 2021-11-10 15:10 | PC.NURSE ---
UA COLLECTED AND SENT TO LAB
[2021-11-10 15:13] LABS: Microscopic, Urine URINE MICROSCOPIC (MICROSCOPIC)
[2021-11-10 15:15] LABS: Blood, Urine 3+ (Negative); Glucose,Urine (UA) 1+ (Negative); Ketones,Urine 1+ (Negative); Leukocyte Esterase,Urine 2+ (Negative); Nitrate,Urine POSITIVE (Negative); Protein,Urine 3+ (Negative); Specific Gravity, Urine 1.025 (1.005-1.030); Urobilinogen,Urine >=8.0 EU/dl (0.2)
--- NOTE | 2021-11-10 15:19 | HMH.EDGENADL ---
ED Disposition Clinical Impression: Urinary tract infection Qualifiers: Urinary tract infection type: acute cystitis Hematuria presence: with hematuria Qualified Code(s): N30.01 - Acute cystitis with hematuria Disposition: Home, Self-Care Condition on Discharge: Good Instructions: DI for Urinary Tract Infection (UTI) Prescriptions: Ciprofloxacin HCl [Cipro 500mg Tab] 500 mg PO BID #14 tab Transmission Status: Pending to [id number] Referrals: Tomas Clark MD [Primary Care Provider] - - Critical Care Critical Care Time: No Attestation: On 11/10/21, the high probability of a clinically significant, sudden or life threatening deterioration of the following system(s) required my full and direct attention, intervention and personal management. The time I documented below is in addition to time spent performing reported procedures but includes the following listed in this critical care notation. Medical Decision Making - Medical Records Medical records reviewed: Yes: I reviewed the patient's medical records. - David Inquiry Pt receiving controlled substance: No Vital Signs: 11/10/21 15:01 11/10/21 15:15 11/10/21 15:45 Temperature 99.0 F Temperature Source Oral Pulse Rate 60 60 Pulse Rate [Brachial] 64 Respiratory Rate 18 Blood Pressure 142/66 H 134/48 L Blood Pressure [Right Arm] 142/66 H Blood Pressure Mean [Right Arm] 91 Blood Pressure Source [Right Arm] Automatic Cuff Blood Pressure Position [Right Arm] Sitting 02 Sat by Pulse Oximetry 97 97 96 Oxygen Delivery Method Room Air 11/10/21 16:30 11/10/21 17:00 11/10/21 17:30 Temperature Temperature Source Pulse Rate 60 60 56 L Pulse Rate [Brachial] Respiratory Rate Blood Pressure 145/55 H 144/57 H 141/51 H Blood Pressure [Right Arm] Blood Pressure Mean [Right Arm] Blood Pressure Source [Right Arm] Blood Pressure Position [Right Arm] 02 Sat by Pulse Oximetry 96 97 96 Oxygen Delivery Method - Lab Data Lab Results 11/10/21 15:07: Urine Color Red, Urine Appearance Cloudy, Urine pH 7.0, Ur Specific Horn[place] 1.025, Urine Protein 3+, Urine Glucose (UA) 1+, Urine Ketones 1+, Urine Blood 3+, Urine Nitrate Positive, Urine Bilirubin 2+ A, Urine Urobilinogen >=8.0, Ur Leukocyte Esterase 2+ A, Urine RBC Tntc, Urine WBC 20-50, Ur Squamous Epith Cells 3-5, Urine Bacteria 4+ 11/10/21 16:22: WBC 6.5, RBC 4.06 L, Hgb 11.8 L, Hct 36.9 L, MCV 91.1, MCH 29.2, MCHC 32.0, RDW 13.7, Plt Count 141 L, MPV 8.7, Neut % (Auto) 60.4, Lymph % (Auto) 29.0, Daniels % (Auto) 7.5, Eos % (Auto) 2.7, Baso % (Auto) 0.4, Neut # (Auto) 3.9, Lymph # (Auto) 1.9, Daniels # (Auto) 0.5, Eos # (Auto) 0.2, Baso # (Auto) 0.0 11/10/21 16:22: Sodium 140, Potassium 4.1, Chloride 108 H, Carbon Dioxide 30, Anion Gap 6.1, BUN 17, Creatinine 0.70, Estimated Creat Clear 38, Estimated GFR 80, Est GFR ( Amer) 97, Glucose 153 H, Calcium 9.3 Result diagrams: 11/10/21 16:22 11/10/21 16:22 Orders (Tests/Meds): ORDERS Category Date Time Status Urine Culture Stat Micro 11/10/21 15:07 Received - CT Data CT Scan: Abdomen, Pelvis Time Received: 17:[address] Reviewed: Yes: I have reviewed the patient's CT results, I have viewed the radiologist's interpretation Findings Narrative: IMPRESSION: No hydronephrosis or nephrolithiasis. Questionable soft tissue density in the distal rectum. Mass not excluded. Recommend correlation with digital exam. - Reevaluation(s) Time: 17:46 Reevaluation #1: On reevaluation, patient is feeling better. She does have evidence urinary tract infection. Likely contributing to her hematuria. Patient placed on short course antibiotics. Given strict return precautions. Verbalized understanding. Medical Decision Narrative: 81-year-old female presenting with some painless hematuria. Findings are most consistent with cystitis or bleeding secondary to her new anticoagulation. Abdomen is nontender.
[2021-11-10 15:22] LABS: Bilirubin,Urine 2+ (Negative)
[2021-11-10 15:23] LABS: Appearance,Urine Cloudy (Clear); Color,Urine Red (Yellow)
--- NOTE | 2021-11-10 15:25 | PC.NURSE ---
pt to CT
[2021-11-10 15:48] LABS: Bacteria,Urine 4+ /lpf; RBC,Urine TNTC #/hpf (0-3); WBC,Urine 20-50 #/hpf (0-3)
--- NOTE | 2021-11-10 16:08 | PC.NURSE ---
ROUNDED ON PT AT THIS TIME, PT RESTING COMFORTABLY. UPDATED ON POC. NO NEEDS AT THIS TIME
--- NOTE | 2021-11-10 16:24 | PC.NURSE ---
blood sent to lab
[2021-11-10 16:39] LABS: Chloride 108 mmol/L (98-107); Potassium 4.1 mmoL/L (3.5-5.1); Sodium 140 mmol/L (136-145)
[2021-11-10 16:42] LABS: Blood Urea Nitrogen 17 mg/dl (7-17); Creatinine Clearance Estimated 38 mL/min (50-200); Estimated Glomerular Filt Rate 80 ml/min (>60); GFR (African American) 97 ML/MIN (>60)
[2021-11-10 16:43] LABS: Anion Gap 6.1 mEq/L (5-15); Calcium 9.3 mg/dl (8.4-10.2); Carbon Dioxide 30 mmol/L (22.0-30.0); Glucose 153 mg/dl (74-100)
[2021-11-10 16:48] LABS: Basophils % 0.4 % (0.1-2.0); Eosinophils # 0.2 K/mm3 (0.0-0.4); Eosinophils % 2.7 % (0.1-12.0); Hematocrit 36.9 % (37.0-47.0); Hemoglobin 11.8 g/dL (12.2-16.2); Lymphocytes # 1.9 K/mm3 (0.7-4.5); Mean Corpuscular Hemoglobin 29.2 pg (27.0-31.2); Mean Corpuscular Volume 91.1 fl (81-99); Mean Platelet Volume 8.7 fl (7.4-10.4); Monocytes # 0.5 K/mm3 (0.1-1.0); Monocytes % 7.5 % (1.7-9.3); Neutrophils # 3.9 K/mm3 (1.8-7.8); Neutrophils % 60.4 % (37.0-80.0); Platelet Count 141 K/mm3 (142-424); Red Blood Count 4.06 M/mm3 (4.20-5.40); Red Cell Distribution Width 13.7 % (11.5-17.5); White Blood Count 6.5 K/mm3 (4.8-10.8)
--- NOTE | 2021-11-10 17:20 | PC.NURSE ---
FAMILY UPDATED AT THIS TIME, MD WILL FOLLOW-UP
== END 2021-11-10 17:50 | disposition home or self-care (01) ==
PROVIDERS: Emergency Provider Emergency Medicine; PCP Internal Medicine Adolescent Medicine
DX: N30.01 Acute cystitis with hematuria (principal); Z79.01 Long term (current) use of anticoagulants; Z88.0 Allergy status to penicillin; Z88.8 Allergy status to other drugs, medicaments and biological substances; Z95.0 Presence of cardiac pacemaker; I65.29 Occlusion and stenosis of unspecified carotid artery; I11.0 Hypertensive heart disease with heart failure; I25.10 Atherosclerotic heart disease of native coronary artery without angina pectoris; I73.9 Peripheral vascular disease, unspecified; E78.5 Hyperlipidemia, unspecified; I50.9 Heart failure, unspecified; Z86.73 Personal history of transient ischemic attack (TIA), and cerebral infarction without residual deficits
CPT/HCPCS: 74176; 80048; 81001; 85025; 87086; 87088; 87186; 99284

== ENCOUNTER 2022-08-06 05:53 | Inpatient (IN) | payer OTHER, MEDICARE, SELFPAY ==
[2022-08-06] VITALS (12 sets, daily range): BP systolic 122–155; BP diastolic 61–81; PULSE 62–74; RESP 18–40; TEMP 36.5–37.4; O2SAT 93–100; BMI 19.5; BMI 18.8; BMI 18.7
--- NOTE | 2022-08-06 06:03 | ECG_ITS ---
APPROVED REPORT Exam: Resting ECG HR:61 bpm ECG Measurements Heart Rate 61 AXES NV 163 P 54 QRSd 161 QRS 155 QT 507 T -24 QTc 510 Conclusion SINUS RHYTHM INTRAVENTRICULAR CONDUCTION DELAY [130+ ms QRS DURATION] ABNORMAL ECG UNCONFIRMED REPORT Electronically signed by : Tomas Clark MD 08/07/2022 17:03:48
--- NOTE | 2022-08-06 06:08 | CT_ITS ---
FINAL REPORT TECHNIQUE: Axial CT images were performed through the head. Coronal reformatted images were submitted. This study was performed with techniques to keep radiation doses as low as reasonably achievable (ALARA). Individualized dose reduction techniques using automated exposure control or adjustment of mA and/or kV according to the patient's size were employed. CLINICAL HISTORY: ams COMPARISON: 04/11/2020 FINDINGS: There is moderate atrophy. There is a large region of encephalomalacia in the right occipital lobe. There is a small region of encephalomalacia in the left occipital lobe. In addition, there is encephalomalacia in the superior left cerebellar hemisphere. There is a large region of the edema in the left posterior temporal and parietal lobes well seen on images 26-39 on series 3. This was not clearly present on the prior, may represent a region of subacute ischemia. The ventricles are normal in size. There is no evidence of hemorrhage. There is no mass. There is no abnormal extra-axial fluid seen. The sinuses are well aerated. IMPRESSION: Edema in the left posterior temporal and parietal lobes, may represent a region of subacute ischemia. MRI may be of value. Isamar Wright RN was notified of findings on 08/06/2022 at 7:50 a.m. Reviewed, Interpreted and Dictated by Ej Allen MD Transcribed by María Elena Cruz Authenticated and . [facility]
--- NOTE | 2022-08-06 06:08 | XR_ITS ---
FINAL REPORT CLINICAL HISTORY: cough, wheezing COMPARISON: 03/30/2020 FINDINGS: SINGLE-VIEW CHEST There is mild cardiomegaly. A pacer is identified. The mediastinum is normal. There are chronic changes in both lungs. Findings are stable since previous. There is no pneumothorax. IMPRESSION: No acute cardiopulmonary process. Reviewed, Interpreted and Dictated by Ej Allen MD Transcribed by María Elena Cruz Authenticated and [facility]
[2022-08-06 06:18] LABS: Coronavirus 19, PCR Not Detected (NotDetected); Influenza A, PCR Not Detected (NotDetected); Influenza B, PCR Not Detected (NotDetected)
[2022-08-06 06:23] LABS: Basophils # 0.1 K/mm3 (0-0.2); Basophils % 0.5 % (0.1-2.0); Eosinophils # 0.2 K/mm3 (0.0-0.4); Eosinophils % 1.7 % (0.1-12.0); Hematocrit 38.2 % (37.0-47.0); Hemoglobin 11.7 g/dL (12.2-16.2); Lymphocytes # 1.5 K/mm3 (0.7-4.5); Mean Corpuscular HGB Conc 30.8 g/dL (31.8-35.4); Mean Corpuscular Hemoglobin 30.2 pg (27.0-31.2); Mean Corpuscular Volume 98.2 fl (81-99); Mean Platelet Volume 9.8 fl (7.4-10.4); Monocytes # 0.5 K/mm3 (0.1-1.0); Monocytes % 4.9 % (1.7-9.3); Neutrophils % 77.9 % (37.0-80.0); Platelet Count 174 K/mm3 (142-424); Red Blood Count 3.89 M/mm3 (4.20-5.40); Red Cell Distribution Width 14.5 % (11.5-17.5); White Blood Count 10.2 K/mm3 (4.8-10.8)
[2022-08-06 06:24] LABS: Chloride 108 mmol/L (98-107); Sodium 141 mmol/L (136-145)
--- NOTE | 2022-08-06 06:24 | PC.NURSE ---
pt given total bed bath and linen change. Bed bugs discovered in her clothes and bites along her neck, abd, back, and BLE. Pt belongings double bagged & labeled.
[2022-08-06 06:25] LABS: Potassium 4.3 mmoL/L (3.5-5.1)
[2022-08-06 06:27] LABS: Alanine Aminotransferase 19 U/L (12-78); Albumin Level 4.1 g/dl (3.5-5.0); Albumin/Globulin Ratio 1.4 (1.1-1.8); Alkaline Phosphatase 62 U/L (38-126); Anion Gap 11.3 mEq/L (5-15); Aspartate Amino Transferase 30 U/L (14-36); Bilirubin,Total 1.1 mg/dl (0.2-1.3); Blood Urea Nitrogen 26 mg/dl (7-17); Calcium 9.1 mg/dl (8.4-10.2); Carbon Dioxide 26 mmol/L (22.0-30.0); Creatinine Clearance Estimated 34 mL/min (50-200); Estimated Glomerular Filt Rate 53 ml/min (>60); GFR (African American) 64 ML/MIN (>60); Glucose 240 mg/dl (74-100); Total Protein,Serum 7.1 g/dl (6.3-8.2)
[2022-08-06 06:28] LABS: Magnesium 2.1 mg/dl (1.6-2.3)
[2022-08-06 06:30] LABS: Creatine Kinase 58 U/L (30-135)
[2022-08-06 06:33] LABS: C-Reactive Protein 5.4 mg/L (0-4)
[2022-08-06 06:39] LABS: NT Pro Brain Natriuretic Pep. 13000 pg/mL (0-450)
[2022-08-06 06:48] LABS: ABG HCO3 22.3 mmhg (22.0-26.0); ABG Oxygen Saturation 99 % (90-100); ABG PH 7.43 mmol/L (7.35-7.45); ABG PO2 181.7 mmhg (80-100); ABG TCO2 23.3 mmhg (23-27)
[2022-08-06 06:49] LABS: Allen's Test ACCEPTABLE; Source R RADIAL
[2022-08-06 06:50] LABS: Oxygen ON NEB %
[2022-08-06 06:52] LABS: Microscopic, Urine URINE MICROSCOPIC (MICROSCOPIC)
[2022-08-06 06:53] LABS: Acetone, Serum (Rapid) None Detected (None Detect)
[2022-08-06 06:59] LABS: Blood, Urine 3+ (Negative); Color,Urine YELLOW (Yellow); Glucose,Urine (UA) Negative (Negative); Ketones,Urine TRACE (Negative); Leukocyte Esterase,Urine 2+ (Negative); Nitrate,Urine POSITIVE (Negative); PH,Urine 5.5 (5.0-8.5); Protein,Urine 2+ (Negative); Specific Gravity, Urine >= 1.030 (1.005-1.030)
[2022-08-06 07:00] LABS: Troponin I < 0.01 ng/ml (0.00-0.034)
[2022-08-06 07:01] LABS: Appearance,Urine Cloudy (Clear); Bilirubin,Urine Negative (Negative)
[2022-08-06 07:02] LABS: Lactic Acid 1.8 mmol/L (0.7-2.1)
[2022-08-06 07:02] LABS: POC Glucose,Bedside 241 (70-110)
--- NOTE | 2022-08-06 07:03 | PC.NURSE ---
PT back from RAD via stretcher
[2022-08-06 07:11] LABS: Erythrocyte Sedimentation Rate 53 mm/hr (0-30)
[2022-08-06 07:19] LABS: Bacteria,Urine 2+ /lpf; RBC,Urine 20-50 #/hpf (0-3); Squamous Epithelial Cell,Urine Occasional #/hpf (0-5)
--- NOTE | 2022-08-06 07:23 | PC.NURSE ---
s/w regarding pt POC. Gave him pt's clothes and belongings, including her wallet. Pt's dentures were removed and are soaking in denture cup at bedside
[2022-08-06 07:30] LABS: Procalcitonin 0.042 ng/mL (0.0-2.0)
--- NOTE | 2022-08-06 07:37 | HMH.EDAMS ---
Discharge Plan Disposition Patient Disposition: Admitted As Inpatient Prescriptions Prescriptions: No Action bisoprolol fumarate 10 mg tablet See Rx Instructions .ROUTE .COMPLEX Qty: 90 5RF Dose Instruction: TAKE 1 TABLET EVERY DAY FOR HYPERTENSION Rx Instructions: TAKE 1 TABLET EVERY DAY FOR HYPERTENSION lisinopril 2.5 mg tablet 2.5 mg PO BID Qty: 180 3RF acetaminophen 325 MG tablet 650 mg PO Q4HP PRN (Reason: Fever Or Mild Pain) 0RF donepezil 5 MG tablet 5 mg PO DAILY 0RF tamsulosin 0.4 MG capsule 0.4 mg PO HS 0RF ondansetron HCl (PF) 4 MG/2 ML solution 4 mg IV Q8HP PRN (Reason: Nausea) 0RF Referrals Follow up/Referrals: Tomas Clark MD [Primary Care Provider] - See instructions Clinical Impressions Clinical Impression: Acute delirium, Automatic implantable cardiac defibrillator in situ, Acute UTI (urinary tract infection), SIRS (systemic inflammatory response syndrome), Diabetes mellitus, Cerebrovascular accident Discharge ED Provider: Manjit (ED)Kenan Altered Mental Status HPI General Chief Complaint: Altered Mental Status Stated Complaint: AMS Time Seen by Provider: 08/06/22 07:00 Mode of Arrival: EMS Source of Information: EMS and Medical Record Limitations: Altered Mental Status Description of Symptoms (Recalled from ER Triage Doc. by RN): Pt brought in via EMS with a call out d/t AMS per pt's son. Per EMS, pt has been confused and not able to speak clearly. Pt's lips and mouth are dry and cracked. Numerous bed bugs bites t/o body. Stage 1 to pt's buttocks and coccyx and pt was wet & soiled on arrival to ER. History of Present Illness HPI narrative: pt with reported change in mental status -pt unable to give hx - discussed with who reports pt was ambulatory with walker until a few days ago - no falls reported MD complaint: altered mental status Onset (ago): day(s) Timing confirmed by: spouse Severity: moderate Consistency of symptoms: waxing and waning Related Data Previous Rx's Medication Instructions Recorded acetaminophen 325 mg tablet 650 mg PO Q4HP PRN Fever Or Mild 09/05/21 Pain donepezil 5 mg tablet 5 mg PO DAILY 09/05/21 ondansetron HCl (PF) 4 mg/2 mL 4 mg (2 mL) IV Q8HP PRN Nausea 09/05/21 injection solution tamsulosin 0.4 mg capsule 0.4 mg PO HS 09/05/21 bisoprolol fumarate 10 mg tablet See Rx Instructions .Route 11/06/21 .COMPLEX #90 tabs lisinopril 2.5 mg tablet 2.5 mg PO BID #180 tabs 04/14/22 Allergies Allergy/AdvReac Type Severity Reaction Status Date / Time adhesive tape Allergy Mild BREAKOUT Verified 02/21/20 11:53 Penicillins [PENICILLINS] Allergy Unknown Verified 02/21/20 11:53 rivaroxaban [From Xarelto] Allergy Rash Verified 02/21/20 11:53 PFSH PFS Disclaimer: The information contained in this section may have been updated after the patient was seen, as this information can be updated by other users. Medical History (Updated 08/06/22 @ 08:33 by Kenan Saravia (NATHANIEL)MD) Coronary artery disease Surgical History (Updated 05/10/17 @ 13:36 by Priscila Rodriguez RN) AICD (automatic cardioverter/defibrillator) present Social History Smoking Status: Former smoker alcohol intake: never substance use type: denies use current occupational status: retired Travel in the last 8 weeks: None household members: spouse housing: house current occupational exposures/hazards: No caffeine: Yes ROS Obtained: Yes unobtainable due to mental status Physical Exam General General appearance: other (confused ) Head Head exam: atraumatic Eye Eye exam: Present PERRL and EOMI; Absent scleral icterus or nystagmus ENT ENT exam: Present mucous membranes dry Neck Neck exam: Present trachea midline; Absent meningismus Respiratory Respiratory exam: Present other (bilat rhonchi ); Absent respiratory distress Cardiovascular Cardiovascular exam: Present regular rate, systolic murmur and +S4 Abd
--- NOTE | 2022-08-06 07:51 | PC.NURSE ---
gerry Ring called CT head report. Dr. Saravia notified of findings.
--- NOTE | 2022-08-06 08:14 | PC.NURSE ---
Dr. Saravia speaking with Dr. Clark at this time.
--- NOTE | 2022-08-06 08:18 | PC.NURSE ---
spoke with jose in for admission verbal order for abx by md boyle
[2022-08-06 08:22] LABS: Hemoglobin A1C 11.8 % (4.0-6.0)
--- NOTE | 2022-08-06 09:08 | PC.NURSE ---
attempted to call pt's to address code status.
--- NOTE | 2022-08-06 09:08 | PC.NURSE ---
Called report to JLU[facility] Soriano
--- NOTE | 2022-08-06 09:21 | PC.NURSE ---
spoke with md about pulling patient armstrong on admission, he stated that at this time he would like to continue with the armstrong. has been reported patient has stage one.
--- NOTE | 2022-08-06 09:24 | PC.NURSE ---
Patient arrived to the floor at this time
--- NOTE | 2022-08-06 11:59 | PC.NURSE ---
PER NAREN INCREASE IVMF TO 150ML/HR.
[2022-08-06 12:12] LABS: POC Glucose,Bedside 251 (70-110)
[2022-08-06 13:28] LABS: POC Glucose,Bedside 269 (70-110)
[2022-08-06 14:31] LABS: Troponin I 0.02 ng/ml (0.00-0.034)
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
--- NOTE | 2022-08-06 14:48 | CARE MANAGER ---
Spoke with Katiuska at [facility] and provided referral to them. is agreeable.
--- NOTE | 2022-08-06 20:59 | EXP.HP ---
History of Present Illness *Admission Date: 08/06/22 *Reason for visit:: Mental status changes *History of present illness: 81-year-old female with long history of recurrent stroke disease, significant dementia and frontal atrophy, who has had multiple issues with vascular disease, peripheral arterial clots and cerebrovascular disease. Her states that she was in her normal state of compromised health last night but around 2 AM this morning she let out some type of groaning noise and then had some shaking episodes. He thought she went back to sleep but then this morning realized that she was not herself and brought her to the ER very early in the morning. Work-up revealed evidence of UTI and evidence of subacute stroke with cerebral and cerebellar edema in the context of significant frontal atrophy. She was admitted to the hospital for further work-up and ongoing evaluation. [facility] Disclaimer: The information contained in this section may have been updated after the patient was seen, as this information can be updated by other users. Medical History (Updated 08/06/22 @ 21:02 by Tomas Clark MD) Coronary artery disease Surgical History AICD (automatic cardioverter/defibrillator) present Family History (Updated 08/06/22 @ 11:21 by Julienne Wheeler RN) No significant family history Social History (Updated 08/06/22 @ 11:21 by Julienne Wheeler RN) Smoking Status: Former smoker alcohol intake: never substance use type: denies use current occupational status: retired Travel in the last 8 weeks: None household members: spouse housing: house current occupational exposures/hazards: No caffeine: Yes Review of Systems Review of Systems Review of systems:: unable to obtain Meds Home Medications and Allergies Home Medications Medication Instructions Recorded Confirmed Type aspirin 81 mg tablet,delayed 81 mg PO DAILY Circulation 08/06/22 08/06/22 History release bisoprolol fumarate 10 mg tablet 10 mg PO DAILY High blood pressure 08/06/22 08/06/22 History lisinopril 2.5 mg tablet (Zestril) 2.5 mg PO BID High blood pressure 08/06/22 08/06/22 History New Prescriptions to Start Prescriptions: Allergies Allergy/AdvReac Type Severity Reaction Status Date / Time adhesive tape Allergy Mild BREAKOUT Verified 02/21/20 11:53 Penicillins [PENICILLINS] Allergy Unknown Verified 02/21/20 11:53 rivaroxaban [From Xarelto] Allergy Rash Verified 02/21/20 11:53 Exam Data for Last 24 hours Vital signs and Labs for Last 24 Hours: Temp Pulse Resp BP Pulse Ox 98.3 F 64 22 134/71 100 08/06/22 20:00 08/06/22 20:00 08/06/22 20:00 08/06/22 20:00 08/06/22 20:00 Laboratory Results - last 24 hr 08/06/22 05:58: POC Glucose 241 H 08/06/22 06:00: WBC 10.2, RBC 3.89 L, Hgb 11.7 L, Hct 38.2, MCV 98.2, MCH 30.2, MCHC 30.8 L, RDW 14.5, Plt Count 174, MPV 9.8, Neut % (Auto) 77.9, Lymph % (Auto) 15.0, [place] % (Auto) 4.9, Eos % (Auto) 1.7, Baso % (Auto) 0.5, Neut # (Auto) 8.0 H, Lymph # (Auto) 1.5, [place] # (Auto) 0.5, Eos # (Auto) 0.2, Baso # (Auto) 0.1, ESR 53 H 08/06/22 06:00: Sodium 141, Potassium 4.3, Chloride 108 H, Carbon Dioxide 26, Anion Gap 11.3, BUN 26 H, Creatinine 1.00, Estimated Creat Clear 34, Estimated GFR 53 L, Est GFR ( Amer) 64, Glucose 240 H, Calcium 9.1, Magnesium 2.1, Total Bilirubin 1.1, AST 30, ALT 19, Alkaline Phosphatase 62, Total Creatine Kinase 58, Troponin I < 0.01, C-Reactive Protein 5.4 H, NT-Pro-B Natriuret Pep 92100 H, Total Protein 7.1, Albumin 4.1, Globulin 3.0, Albumin/Globulin Ratio 1.4, Procalcitonin 0.042, Acetone Level None detected 08/06/22 06:00: SARS-CoV-2 (PCR) Not detected, Influenza A Untype (PCR) Not detected, Influenza Type B (PCR) Not detected 08/06/22 06:00: Hemoglobin A1c 11.8 H 08/06/22 06:23: Urine Color Yellow, Urine Appearance Cloudy, Urine pH 5.5, Ur Specific [place] >= 1.030, Urine Protein 2+, Ur
[2022-08-06 22:11] LABS: POC Glucose,Bedside 238 (70-110)
[2022-08-07] VITALS: BP 130/56; PULSE 62; RESP 20; TEMP 36.5; O2SAT 99
[2022-08-07 04:00] VITALS: BP 131/60; PULSE 60; RESP 20; TEMP 36.3; O2SAT 97; BMI 19.6
[2022-08-07 06:12] LABS: Basophils % 0.2 % (0.1-2.0); Eosinophils % 0.1 % (0.1-12.0); Hematocrit 34.9 % (37.0-47.0); Hemoglobin 10.9 g/dL (12.2-16.2); Lymphocytes # 1.3 K/mm3 (0.7-4.5); Lymphocytes % 11.9 % (10-50); Mean Corpuscular HGB Conc 31.1 g/dL (31.8-35.4); Mean Corpuscular Hemoglobin 29.6 pg (27.0-31.2); Mean Corpuscular Volume 95.1 fl (81-99); Mean Platelet Volume 9.2 fl (7.4-10.4); Monocytes # 0.7 K/mm3 (0.1-1.0); Monocytes % 6.3 % (1.7-9.3); Neutrophils # 9.2 K/mm3 (1.8-7.8); Neutrophils % 81.4 % (37.0-80.0); Platelet Count 142 K/mm3 (142-424); Red Blood Count 3.67 M/mm3 (4.20-5.40); Red Cell Distribution Width 14.6 % (11.5-17.5); White Blood Count 11.3 K/mm3 (4.8-10.8)
[2022-08-07 06:33] LABS: Chloride 114 mmol/L (98-107); Potassium 4.3 mmoL/L (3.5-5.1); Sodium 144 mmol/L (136-145)
[2022-08-07 06:36] LABS: Anion Gap 12.3 mEq/L (5-15); Blood Urea Nitrogen 27 mg/dl (7-17); Carbon Dioxide 22 mmol/L (22.0-30.0); Creatinine Clearance Estimated 37 mL/min (50-200); Estimated Glomerular Filt Rate 60 ml/min (>60); GFR (African American) 72 ML/MIN (>60); Glucose 145 mg/dl (74-100)
--- NOTE | 2022-08-07 07:07 | PC.NURSE ---
no changes from previous assessment, pt restless at times but cannot answer any questions, pt only moans and pulls at gown and 02, pt will grab left leg and moan, morphine given as prescribed, f/c to bsd with coudy urine noted, family remains at bedside, 02 sats 97-99 on o2 at 4L pnc, lung sounds diminished, vss, no other issues noted at this time, pt flaccid on right side
[2022-08-07 07:09] LABS: POC Glucose,Bedside 202 (70-110)
[2022-08-07 07:33] VITALS: BP 113/51; PULSE 60; RESP 18; TEMP 37.8; O2SAT 97
--- NOTE | 2022-08-07 08:29 | EXP.ACUTE.PN ---
Subjective *Date: 08/07/22 *Time: 08:29 Interval history: Patient remains unresponsive, has received several doses of morphine through the night which seemed to do well in regards to restlessness. Medical Exam Vital signs and Labs for Last 24 Hours: Vital Signs Temp Pulse Pulse Resp BP BP Pulse Ox 08/07/22 07:33 100.1 F H 60 18 113/51 L 97 08/07/22 04:00 97.3 F L 60 20 131/60 97 08/06/22 20:00 100 08/07/22 00:00 97.7 F 62 20 130/56 L 99 08/06/22 20:00 98.3 F 64 22 134/71 100 08/06/22 15:28 99.0 F 70 20 122/61 99 08/06/22 14:08 40 H 08/06/22 09:44 97.7 F 73 31 H 151/74 H 93 L 08/06/22 09:22 98.9 F 73 22 151/74 H 08/06/22 09:12 74 22 149/71 H 93 L 08/06/22 08:42 72 18 145/72 H 95 Intake and Output 08/06/22 08/07/22 08/07/22 19:59 03:59 11:59 Intake Total 901 / 1454 553 / 1454 Output Total 0 / 200 200 / 200 0 / 200 Balance 901 / 1254 353 / 1254 0 / 1254 Intake: Intake, Total IV Amount 901 / 1454 553 / 1454 0.9 % Sodium Chloride 1000ML 1, 901 / 1454 553 / 1454 000 ml @ 50 mls/hr IV .Q20H [facility] Rx#:[id number] Output: Output, Urine Amount 0 / 200 200 / 200 0 / 200 Other: Number of Unmeasured Voids 1 0 1 Weight 122 lb 3.2 oz Patient Weight 08/07/22 11:59 Weight 122 lb 3.2 oz Laboratory Results - last 24 hr 08/06/22 06:23: Urine Color Yellow, Urine Appearance Cloudy, Urine pH 5.5, Ur Specific [place] >= 1.030, Urine Protein 2+, Urine Glucose (UA) Negative, Urine Ketones Trace, Urine Blood 3+, Urine Nitrate Positive, Urine Bilirubin Negative, Urine Urobilinogen 1.0, Ur Leukocyte Esterase 2+ A, Urine RBC 20-50, Urine WBC 10-20, Ur Squamous Epith Cells Occasional, Urine Bacteria 2+ 08/06/22 11:56: POC Glucose 251 H 08/06/22 12:32: Troponin I 0.02 08/06/22 13:13: POC Glucose 269 H 08/06/22 21:39: POC Glucose 238 H 08/07/22 06:00: WBC 11.3 H, RBC 3.67 L, Hgb 10.9 L, Hct 34.9 L, MCV 95.1, MCH 29.6, MCHC 31.1 L, RDW 14.6, Plt Count 142, MPV 9.2, Neut % (Auto) 81.4 H, Lymph % (Auto) 11.9, [place] % (Auto) 6.3, Eos % (Auto) 0.1, Baso % (Auto) 0.2, Neut # (Auto) 9.2 H, Lymph # (Auto) 1.3, [place] # (Auto) 0.7, Eos # (Auto) 0.0, Baso # (Auto) 0.0 08/07/22 06:00: Sodium 144, Potassium 4.3, Chloride 114 H, Carbon Dioxide 22, Anion Gap 12.3, BUN 27 H, Creatinine 0.90, Estimated Creat Clear 37, Estimated GFR 60, Est GFR ( Amer) 72, Glucose 145 H D, Calcium 8.0 L 08/07/22 06:23: POC Glucose 202 H I & O for Labs for Last 24 Hours: Intake & Output 08/04/22 08/05/22 08/06/22 08/07/22 11:59 11:59 11:59 11:59 Intake Total 1454 / 1454 Output Total 0 / 0 200 / 200 Balance 0 / 0 1254 / 1254 Weight 116 lb 122 lb 3.2 oz Microbiology Reports for the Last 24 Hours: Microbiology 08/06/22 06:23 Urine,Catheterized Urine Culture - Preliminary Gram Negative Rods Comment:: Patient is unresponsive to verbal or tactile stimuli, breathing fairly easily. Diminished urine output. Extremities remain warm. Assessment and Plan *Assessment and plan (1) Acute delirium: Status: Acute Category: Medical Code(s): R41.0 - Disorientation, unspecified (2) Acute stroke due to ischemia: Status: Acute Category: Medical Code(s): I63.9 - Cerebral infarction, unspecified (3) Cerebellar edema: Status: Acute Category: Medical Code(s): G93.6 - Cerebral edema Plan Although patient does have a UTI her main problem is evidence of recurrent stroke and cerebellar edema with progressive mental status loss. Given significant delirium, baseline dementia and her advanced age she is not a candidate for any kind of neurovascular procedure. Long discussions with her family and . Plan will be to transition to hospice care, palliative medications have been given and she is much more comfortable. Anticipated terminal outcome. Plan update
[2022-08-07 11:24] LABS: POC Glucose,Bedside 124 (70-110)
[2022-08-07 11:38] VITALS: BP 113/55; PULSE 60; RESP 14; TEMP 36.8; O2SAT 96
[2022-08-07 16:00] VITALS: BP 115/62; PULSE 60; RESP 18; TEMP 37.4; O2SAT 92
[2022-08-07 17:05] LABS: POC Glucose,Bedside 117 (70-110)
--- NOTE | 2022-08-07 19:16 | PC.NURSE ---
Patient turned q2. VS stable. Oxygen weaned to 1LNC. Pain controlled with IV morphine.
[2022-08-07 20:00] VITALS: BP 125/60; PULSE 60; RESP 16; TEMP 36.9; O2SAT 99
[2022-08-07 20:40] LABS: POC Glucose,Bedside 109 (70-110)
--- NOTE | 2022-08-07 21:20 | PC.NURSE ---
pt unable to answer if in pain, noted grabbing her left leg and moaning, pt is restless and pulling gown off. niece Amaya at bedside. prn morphine was given.
--- NOTE | 2022-08-08 00:52 | PC.NURSE ---
Gisel RN in the room to verify prn morphine given to patient. Granddaughter at bedside
[2022-08-08 04:00] VITALS: BMI 19.6
--- NOTE | 2022-08-08 05:03 | PC.NURSE ---
Patient is unresponsive/nonverbal, moans when being turned. Patient turned Q2h. Stable on 1L NC. Prn morphine given r/t restlessness and moaning. Padron to bsd with sediment noted in urine. Granddaughter at bedside.
[2022-08-08 05:39] LABS: POC Glucose,Bedside 146 (70-110)
[2022-08-08 08:00] VITALS: BP 140/56; PULSE 72; RESP 18; TEMP 37.2; O2SAT 93
--- NOTE | 2022-08-08 08:46 | EXP.ACUTE.PN ---
Subjective *Date: 08/08/22 *Time: 08:46 Interval history: Patient remains obtunded. Hospice nurse making rounds also. Discussed case with her as well as and family. They are happy with care and feels like she occasionally is restless in between morphine doses. Medical Exam Vital signs and Labs for Last 24 Hours: Vital Signs Temp Pulse Resp BP Pulse Ox 08/08/22 08:00 99.0 F 72 18 140/56 L 93 L 08/07/22 20:00 98.5 F 60 16 125/60 99 08/07/22 16:00 99.4 F 60 18 115/62 92 L 08/07/22 11:38 98.3 F 60 14 113/55 L 96 Intake and Output 08/07/22 08/08/22 08/08/22 19:59 03:59 11:59 Intake Total 521 / 771 250 / 771 Output Total 675 / 675 Balance 521 / 96 -425 / 96 Intake: Intake, Oral Amount 0 / 0 Intake, Total IV Amount 521 / 771 250 / 771 0.9 % Sodium Chloride 1000ML 1, 521 / 771 250 / 771 000 ml @ 50 mls/hr IV .Q20H [facility] Rx#:[id number] Output: Output, Urine Amount 675 / 675 Other: Number of Unmeasured Voids 0 450 Weight 122 lb 3.2 oz Patient Weight 08/08/22 11:59 Weight 122 lb 3.2 oz Laboratory Results - last 24 hr 08/07/22 11:14: POC Glucose 124 H 08/07/22 16:56: POC Glucose 117 H 08/07/22 20:19: POC Glucose 109 08/08/22 05:13: POC Glucose 146 H I & O for Labs for Last 24 Hours: Intake & Output 08/05/22 08/06/22 08/07/22 08/08/22 11:59 11:59 11:59 11:59 Intake Total 1454 / 1454 771 / 771 Output Total 0 / 0 200 / 200 675 / 675 Balance 0 / 0 1254 / 1254 96 / 96 Weight 116 lb 122 lb 3.2 oz 122 lb 3.2 oz Microbiology Reports for the Last 24 Hours: Microbiology 08/06/22 06:23 Urine,Catheterized Urine Culture - Final Klebsiella aerogenes 08/06/22 06:32 Blood Blood Culture - Preliminary NO GROWTH AFTER 48 HOURS 08/06/22 06:32 Blood Blood Culture - Preliminary NO GROWTH AFTER 48 HOURS Comment:: Patient is obtunded, no response to verbal or tactile stimuli. Breathing comfortably, extremities have somewhat diminished perfusion. Heart rate regular. Assessment and Plan *Assessment and plan (1) Acute delirium: Status: Acute Category: Medical Code(s): R41.0 - Disorientation, unspecified (2) Acute stroke due to ischemia: Status: Acute Category: Medical Code(s): I63.9 - Cerebral infarction, unspecified (3) Cerebellar edema: Status: Acute Category: Medical Code(s): G93.6 - Cerebral edema Plan Although patient does have a UTI her main problem is evidence of recurrent stroke and cerebellar edema with progressive mental status loss. Given significant delirium, baseline dementia and her advanced age she is not a candidate for any kind of neurovascular procedure. Long discussions with her family and . Plan will be to transition to hospice care, palliative medications have been given and she is much more comfortable. Anticipated terminal outcome. Plan update for08/07/22-family at bedside, in agreement with plan. Continue supportive/terminal care. Hospice involved also. We will de-escalate therapy with lower dose IV fluids and discontinue antibiotics. Plan update 08/08/2022-family at bedside, happy with care, continue supportive/terminal care, we will increase morphine frequency and add Ativan for comfort.
--- NOTE | 2022-08-08 09:27 | PC.NURSE ---
courtesy tech note; rounded on pt, pt sleeping, family members denied need for assistance with anything at this time, 2 family meal trays taken into room, call light within reach, no further requests at this time. Tete Sanchez, SRNA
[2022-08-08 12:00] VITALS: BP 142/62; PULSE 71; RESP 22; TEMP 37; O2SAT 96
--- NOTE | 2022-08-08 12:48 | PC.NURSE ---
spoke with pt family regarding pt status. They do not want to continue fsbs.
--- NOTE | 2022-08-08 15:40 | PC.NURSE ---
courtesy tech note; rounded on pt, pt sleeping, family denies need for snack, drink, or assistance with anything at this time. call light within reach. no further requests at this time. Tete Sanchez, KARIN
[2022-08-08 16:00] VITALS: BP 124/52; PULSE 60; RESP 20; TEMP 37.2; O2SAT 97
--- NOTE | 2022-08-08 16:05 | PC.NURSE ---
courtesy tech note; pt walked length of room three times standby assist. tolerated well. assisted pt back to bed from chair and assisted to reposition. call light within reach. Tete Sanchez, SRNA
--- NOTE | 2022-08-08 16:51 | PC.NURSE ---
oral care provided per nursing. family @ bedside. pt is resting more comfortably @ this time.
--- NOTE | 2022-08-08 18:29 | PC.NURSE ---
courtesy tech note; rounded on pt, pt sleeping at this time. family denies need for anything at this time. call light within reach. Tete Sanchez, SRNA
[2022-08-08 20:00] VITALS: BP 131/65; PULSE 70; RESP 16; TEMP 36.8; O2SAT 94
[2022-08-09 04:00] VITALS: BMI 19.6
--- NOTE | 2022-08-09 05:16 | PC.NURSE ---
Pt is sedated/unresponsive. Prn medications given. Padron cath to bsd. Patient is receiving iv fluids. On 2L nc. Family at bedside
[2022-08-09 07:34] VITALS: BP 128/68; PULSE 60; RESP 16; TEMP 37.7; O2SAT 94
--- NOTE | 2022-08-09 08:53 | EXP.ACUTE.PN ---
Subjective *Date: 08/09/22 *Time: 08:53 Interval history: Patient remains obtunded, nonresponsive. Overnight she required some Robinul and now has a fever. Medical Exam Vital signs and Labs for Last 24 Hours: Vital Signs Temp Pulse Resp BP Pulse Ox 08/09/22 07:34 99.9 F H 60 16 128/68 94 L 08/08/22 20:00 98.2 F 70 16 131/65 94 L 08/08/22 16:00 99.0 F 60 20 124/52 L 97 08/08/22 12:00 98.6 F 71 22 142/62 H 96 Intake and Output 08/08/22 08/09/22 08/09/22 19:59 03:59 11:59 Intake Total 250 / 250 Output Total 350 / 600 250 / 600 Balance -100 / -350 -250 / -350 Intake: Intake, Total IV Amount 250 / 250 0.9 % Sodium Chloride 1000ML 1, 250 / 250 000 ml @ 50 mls/hr IV .Q20H [facility] Rx#:[id number] Output: Output, Urine Amount 350 / 600 250 / 600 Other: Number of Unmeasured Voids 0 1 Weight 122 lb 3.059 oz Patient Weight 08/09/22 11:59 Weight 122 lb 3.059 oz I & O for Labs for Last 24 Hours: Intake & Output 08/06/22 08/07/22 08/08/22 08/09/22 11:59 11:59 11:59 11:59 Intake Total 1454 / 1454 771 / 771 250 / 250 Output Total 0 / 0 200 / 200 675 / 675 600 / 600 Balance 0 / 0 1254 / 1254 96 / 96 -350 / -350 Weight 116 lb 122 lb 3.2 oz 122 lb 3.2 oz 122 lb 3.059 oz Microbiology Reports for the Last 24 Hours: Microbiology 08/06/22 06:23 Urine,Catheterized Urine Culture - Final Klebsiella aerogenes 08/06/22 06:32 Blood Blood Culture - Preliminary NO GROWTH AFTER 48 HOURS 08/06/22 06:32 Blood Blood Culture - Preliminary NO GROWTH AFTER 48 HOURS Comment:: Patient is obtunded, agonal breathing. Extremities are poorly perfused Assessment and Plan *Assessment and plan (1) Acute delirium: Status: Acute Category: Medical Code(s): R41.0 - Disorientation, unspecified (2) Acute stroke due to ischemia: Status: Acute Category: Medical Code(s): I63.9 - Cerebral infarction, unspecified (3) Cerebellar edema: Status: Acute Category: Medical Code(s): G93.6 - Cerebral edema Plan Remains terminally ill. I anticipate will be eminent. Comfort care continues. Family is at bedside.
[2022-08-09 09:03] VITALS: BMI 19.6
[2022-08-09 20:00] VITALS: BP 124/53; PULSE 60; RESP 18; TEMP 37.7; O2SAT 98
[2022-08-10 04:00] VITALS: BMI 19.5
--- NOTE | 2022-08-10 05:51 | PC.NURSE ---
patient is unresponsive. 1L NC. armstrong to bsd draining clear urine. hospice/comfort care. prn meds given through the night. son @ bedside.
[2022-08-10 08:00] VITALS: BP 139/69; PULSE 82; RESP 22; TEMP 37.2; O2SAT 87
--- NOTE | 2022-08-10 08:38 | EXP.ACUTE.PN ---
Subjective *Date: 08/10/22 *Time: 08:38 Interval history: No changes overnight, patient remains under hospice care, receiving morphine and rare Ativan doses. Family's been at bedside. Medical Exam Vital signs and Labs for Last 24 Hours: Vital Signs Temp Pulse Resp BP Pulse Ox 08/10/22 08:00 98.9 F 82 22 139/69 87 L 08/09/22 20:00 99.9 F H 60 18 124/53 L 98 Intake and Output 08/09/22 08/10/22 08/10/22 19:59 03:59 11:59 Intake Total 250 / 250 Output Total 400 / 1250 700 / 1250 150 / 1250 Balance -400 / -1000 -450 / -1000 -150 / -1000 Intake: Intake, Total IV Amount 250 / 250 0.9 % Sodium Chloride 1000ML 1, 250 / 250 000 ml @ 50 mls/hr IV .Q20H [facility] Rx#:[id number] Output: Output, Urine Amount 400 / 1250 700 / 1250 150 / 1250 Other: Number of Unmeasured Voids 1 0 0 Weight 122 lb Patient Weight 08/10/22 11:59 Weight 122 lb I & O for Labs for Last 24 Hours: Intake & Output 08/07/22 08/08/22 08/09/22 08/10/22 11:59 11:59 11:59 11:59 Intake Total 1454 / 1454 771 / 771 250 / 250 250 / 250 Output Total 200 / 200 675 / 675 600 / 600 1250 / 1250 Balance 1254 / 1254 96 / 96 -350 / -350 -1000 / -1000 Weight 122 lb 3.2 oz 122 lb 3.2 oz 122 lb 2.883 oz 122 lb Comment:: Patient's agonal breathing. Somewhat poor distal perfusion. No response to verbal stimuli. Assessment and Plan *Assessment and plan (1) Acute delirium: Status: Acute Category: Medical Code(s): R41.0 - Disorientation, unspecified (2) Acute stroke due to ischemia: Status: Acute Category: Medical Code(s): I63.9 - Cerebral infarction, unspecified (3) Cerebellar edema: Status: Acute Category: Medical Code(s): G93.6 - Cerebral edema Plan Remains terminally ill. I anticipate will be eminent. Comfort care continues. Family is at bedside.
--- NOTE | 2022-08-10 15:37 | PC.NURSE ---
PT HAS BEEN ASLEEP THUS FAR, NO RESPONSE NOTED. PT HAS BEEN TURNED Q2H. ORAL CARE PROVIDED. FAMILY HAS REMAINED AT BEDSIDE. MEDICATIONS BEING GIVEN FOR COMFORT PER MAR. F/C DRAINING DARK YELLOW URINE. HOSPICE HAS BEEN TO SEE PT. NO NEED THUS FAR, TOLERATING 1LNC. VSS.
[2022-08-10 20:00] VITALS: BP 119/60; PULSE 67; RESP 20; TEMP 37.1; O2SAT 89
[2022-08-11 04:00] VITALS: BMI 19.3
--- NOTE | 2022-08-11 05:33 | PC.NURSE ---
Patient remains unresponsive. Labored breathing periodically throughout the shift, medicated with morphine per JUL. PIV running NS at 25mL/hr per orders. Oxygen on via nasal cannula for comfort per family's request; saturation mid 80s throughout the night. Family has remained at bedside throughout the shift. Patient has been turned and repositioned and comfort care continued.
--- NOTE | 2022-08-11 08:02 | P.DN_ITS ---
Discharge Sum: Prov Provider Primary care physician: Tomas Clark MD Visit Care Team Role Provider Type Kenan Saravia (ED)MD Emergency Provider ER Physician Tomas Clark MD Admit Provider Staff Physician Attending Provider Primary Care Provider Admitting clinician: Tomas Clark Attending physician on admission: Tomas Clark Consults: 08/06/22 14:47 Care Management Consult [Consult to Case Management] [CONS] Routine Reason For Consult: Hospice referral Pronouncing clinician: Tomas Clark Discharge Sum: Diag Contributing Factors (1) Acute stroke due to ischemia: (2) Cerebellar edema: Discharge Sum: Summary Date and Time Date of admission: 08/06/22 09:26 Date of : 08/11/22 Time of : 07:35 Hospital Course prior to Hospital Course Information: Patient was admitted from the ER because of acute delirium, had a UTI but this was incidental to the cause of her delirium which was a stroke. Patient has a history of repetitive strokes and cerebrovascular dementia. Given her advanced age, time since stroke and multiple comorbidities she was not a candidate for transfer for neurologic evaluation and she was admitted. Unfortunately, cerebellar edema occurred and she began to become more obtunded and comatose. Consult with family was held, they agreed with palliative care approach and patient was enrolled in inpatient hospice care with palliative/terminal care. After 2 days of decline she from her stroke at the date and time indicated. Summary Details: See notes above. Additional Data Confirmation of as documented by pronouncing clinician: no pulse, no respirations, no heart sounds and pupils fixed and dilated Family: at bedside Attending/PCP notified?: Yes Attending physician: Tomas Clark MD Was code activated?: No Autopsy requested?: No soft work wrapper layer and examiner notified?: No Organ bank notified?: Yes Advance directives: Yes Hospice patient?: Yes
--- NOTE | 2022-08-11 08:02 | PC.NURSE ---
UPON ASSESSMENT, PT NOTED TO HAVE NO RR OR HEART BEAT. CALLED SECOND NURSE TO VERIFY (Mary MITCHELL RN). NAREN UPDATED, AT BEDSIDE TO PRONOUNCE . TOD 0735. [facility] CONTACTED AT THIS TIME. GIVEN TO CASSANDRA MCNAMARA, .
--- NOTE | 2022-08-11 08:06 | EXP.DEATH.NO ---
Pronouncement Note Date and Time of Date of : 08/11/22 Time of : 08:08 Contributing Factors (1) Acute stroke due to ischemia: (2) Cerebellar edema: Additional Data Attending physician: Tomas Clark MD
--- NOTE | 2022-08-11 08:06 | EXP.DEATH.NO ---
Pronouncement Note Date and Time of Date of : 08/11/22 Time of : 07:35 PCOD Preliminary cause of : Stroke of unknown etiology Contributing Factors (1) Acute stroke due to ischemia: (2) Cerebellar edema: Summary Additional details: See DC summary Additional Data Confirmation of : no pulse Family: at bedside Attending/PCP notified?: Yes Attending physician: Tomas Clark MD Was code activated?: No Autopsy requested?: No garment examiner notified?: No Organ bank notified?: Yes Advance directives: Yes
== END 2022-08-11 12:25 | disposition expired | DRG 64 ==
LOC: ER 08:28 → 2ND 08:55
PROVIDERS: Internal Medicine; Admitting Provider Internal Medicine Adolescent Medicine; Emergency Provider Emergency Medicine; PCP Internal Medicine Adolescent Medicine; Visit Provider Internal Medicine Adolescent Medicine
DX: I63.9 Cerebral infarction, unspecified (principal); G93.6 Cerebral edema; N39.0 Urinary tract infection, site not specified; Z51.5 Encounter for palliative care
CPT/HCPCS: 36415; 51702; 70450; 71045; 80048; 80053; 81001; 82009; 82550; 82803; 82962; 83036; 83605; 83735; 83880; 84145; 84484; 85025; 85651; 86140; 87040; 87086; 87088; 87186; 93005; 93306; 99285; C9803; J0696; U0003; U0005